=== PATIENT | female | born 1940 | race African-American/Black ===

== ENCOUNTER 2022-11-24 10:16 | Outpatient (AMB) | payer MEDICARE, SELFPAY ==
--- NOTE | 2022-11-24 10:37 | AM.OFFWIN_ITS ---
Intake Vital Signs 11/24/22 10:39 Height 5 ft 2 in Weight 180 lb BMI 32.9 BP 150/80 H Blood Pressure Location Lt brachial Position Sitting Pulse 76 Pulse Source Pulse Oximeter Temp 97.6 F Temp Source Temporal Artery Scan Pulse Oximetry (%) 99 Oxygen Delivery Method Room Air Intake Visit Reasons: EP Dizziness/?Vertigo Intake Note: pt is here for c/o dizziness and vertigo Patient Tobacco Use Status: Never used Tobacco Allergies No Known Allergies [No Known Allergies*] Allergy (Verified 11/24/22 10:38) Do you need a note to return to daycare/school/sports/work: Yes HPI EP Dizziness/?Vertigo HPI Details 82-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 She reports she had an episode of vertigo that started Thursday morning when getting up to go to the bathroom. She reports dizziness is worse with rapid movements or changes in position. Reports she has had vertigo in the past and this feels exactly like it. She denies weakness, changes in speech, fevers, chills, headache, aphasia, visual changes, nausea, vomiting, abdominal pain, chest pain, shortness of breath. she reports previously prescribed medications back in August when she had a similar episode worked very well. [facility] Social History Patient Tobacco Use Status: Never used Tobacco Review of Systems Const All systems reviewed & are unremarkable except as noted in HPI and below Physical Exam Vital Signs: Last Vital Signs Temp 97.6 F 11/24/22 10:39 Pulse 76 11/24/22 10:39 BP 150/80 H 11/24/22 10:39 Pulse Ox 99 11/24/22 10:39 Oxygen Delivery Method Room Air 11/24/22 10:39 BMI result Body Mass Index 32.9 Const General: cooperative, healthy appearing, comfortable and no acute distress Orientation/consciousness: patient oriented x3 HEENT Head: Yes normal to inspection and Yes normocephalic Ears: hearing grossly normal bilaterally, external ears normal and TM's normal bilaterally General nose exam: Normal external nose present and Normal nasal mucous membranes and turbinates present Face and sinus: Yes normal facial exam and Yes sinuses nontender Mouth: Normal oral and palatal mucosa present and moist mucous membranes Eyes General: appearance normal, both eyes and all related structures Neck Neck: Yes no lymphadenopathy Resp Effort & Inspection: normal respiratory effort and able to speak in complete sentences Auscultation: clear to auscultation bilaterally Cardio Jugular venous distension: no JVD Palpation: normal PMI Rate: regular rate Rhythm: regular rhythm Skin General skin exam: no rashes or lesions noted Neuro General: patient oriented x3, gait normal, tone normal, no focal motor deficits and CN's II-XI intact bilaterally Extrem General: Yes capillary refill normal and Yes no clubbing, cyanosis or edema Psych Appearance: grossly normal Mental Status: mental status grossly normal Speech and movement: Normal speech and movement present Assessment & Plan Assessment & Plan (1) Vertigo: Code(s): R42 - Dizziness and giddiness Plan: Likely recurrence of vertigo. Physical examination benign. Neuro nonfocal. NIH stroke scale 0. I will refill her meclizine and fluticasone nasal spray as allergies may be a contributing factor to this, and these medications helped her vertigo eposide several months ago. I advised her to follow-up with her PCP, given recurrent episode. Patient and healthcare worker present at visit agree to plan. (2) Allergies: Code(s): T78.40XA - Allergy, unspecified, initial encounter Qualifiers: Encounter type: sequela Qualified Code(s): T78.40XS - Allergy, uns pecified, sequela Medications: Refilled fluticasone propionate 50 mcg/actuation (Flonase Allergy Relief) administer into each nostril 1 spray intranasal DAILY 16 grams 0RF meclizine 25 mg PO BID PRN 30 tabs 0RF dizziness Coding Level of Care Code Est Pt Level 3 (36327) Diagnoses Vertigo R42 Allergy, sequela T78.40XS Encounter type: sequela
[2022-11-24 10:39] VITALS: BP 150/80; PULSE 76; TEMP 36.4; O2SAT 99; BMI 32.9
== END 2022-11-24 11:20 | disposition home or self-care (01) ==
PROVIDERS: PCP Nurse Practitioner Family; Visit Provider Nurse Practitioner Family
DX: R42 Dizziness and giddiness (principal); T78.40XS Allergy, unspecified, sequela
CPT/HCPCS: 99213

== ENCOUNTER 2024-08-10 10:22 | Outpatient (AMB) | payer MEDICARE, SELFPAY ==
--- NOTE | 2024-08-10 10:56 | MHC.OFFWIV ---
Intake Vital Signs 08/10/24 10:59 Height 5 ft 2 in Weight 182 lb 6 oz BMI 33.4 BP 144/80 H Blood Pressure Location Lt brachial Position Sitting Pulse 75 Pulse Source Pulse Oximeter Temp 97.9 F Temp Source Oral Pulse Oximetry (%) 99 Oxygen Delivery Method Room Air Intake Visit Reasons: EP pain on RT side of neck & shoulders Intake Note: EP c/o pain on Rt side of neck and shoulder since thursday Patient Tobacco Use Status: Never used Tobacco Manager Membership Required: No Is last menstrual period known: No Post menopausal: No Patient : No Allergies No Known Allergies [No Known Allergies*] Allergy (Verified 08/10/24 10:57) Do you need a note to return to daycare/school/sports/work: No HPI HPI Comments History of Present Illness Details History of Present Illness - The patient is an 83-year-old female presenting with right sided neck and shoulder pain. - Symptoms began 3 days ago, with pain radiating from the neck to the shoulder on the right side. - She has a past history of left sided bursitis with previous cortisone injections in the shoulder. - The patient attempted relief through topical applications and massaging. - The pain was aggravated by reaching for an item in a cabinet, suggesting a possible muscle strain. - She reports severe pain affecting her sleep, as she has not slept for four days. - No significant back pain or recent heavy lifting was reported. - The patient abstains from NSAIDs due to previous medical advice following an ileoscopy. Physical Exam General: Cooperative, healthy appearing, comfortable, no acute distress and well developed Orientation: Patient oriented x3 Limitations: No limitations Head: Normal to inspection Ears: Hearing grossly normal bilaterally Nose: Normal External nose present Face and sinus: Normal facial exam Eyes: Appearance normal, both eyes and all related structures Neck: Normal visual inspection and Yes full ROM, muscle spasm noted on the right side, into trapezius Respiratory: Normal respiratory effort and able to speak in complete sentences. Skin: No rashes or lesions noted Neuro: Patient oriented x3 Back/spine: no TTP cervical, throacic or lumbar spine Extremities: Normal to inspection [facility] Social History Patient Tobacco Use Status: Never used Tobacco Patient : No Review of Systems Const All systems reviewed & are unremarkable except as noted in HPI and below Physical Exam Vital Signs: Last Vital Signs Temp 97.9 F 08/10/24 10:59 Pulse 75 08/10/24 10:59 BP 144/80 H 08/10/24 10:59 Pulse Ox 99 08/10/24 10:59 Oxygen Delivery Method Room Air 08/10/24 10:59 BMI result Body Mass Index 33.4 Assessment & Plan Assessment & Plan (1) Cervicalgia: Code(s): M54.2 - Cervicalgia Plan: The patient is diagnosed with a muscle spasm and is prescribed cyclobenzaprine 5 mg, with the option to take two tablets if necessary. Heat application is recommended for muscle relaxation. Due to previous medical advice against NSAIDs, these are not prescribed, and acetaminophen is deemed inadequate. Should symptoms persist, physical therapy may be considered, pt should follow up with her PCP. The prescription has been electronically sent to her pharmacy, and she is advised to be cautious when moving at night to avoid falls. Patient was informed and verbally consented to the use of an ambient scribe for clinic note documentation during this visit. Medications: New cyclobenzaprine 5 mg PO Q8H PRN 20 tabs 0RF Muscle Spasm Coding Level of Care Code New Pt Level 3 (50160) Diagnoses Cervicalgia M54.2
[2024-08-10 10:59] VITALS: BP 144/80; PULSE 75; TEMP 36.6; O2SAT 99; BMI 33.4
--- OUTSIDE RECORDS SUMMARY | 2024-08-10 11:20 | XMS_ITS | Clinical Summary ---
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 Phone Unavailable Primary Care Provider Unavailabl e Social History Tobacco Use Types Packs/Day Years Used Date Smoking Tobacco: Never Assessed Comments Unknown Sex and Gender Information Value Date Recorded Sex Assigned at Not on file Legal Sex Female 2:58 PM EST Gender Identity Not on file Sexual Orientation Not on file Plan of Treatment Health Maintenance Due Date Last Done Comments DTaP,Tdap,and Td Vaccines (1 - Tdap) 1959 Pneumococcal Vaccine: 50+ Ye ars (1 of 1 - PCV) 09/11/1991 Zoster Vaccines (1 of 2) 09/11/1991 RSV Immunization Adult Patie nts (1 - 1-dose 75+ series) 2016 Depression Screening 02/12/2022 Falls Risk Assessment 02/12/2022 Osteoporosis Screening (Bone Density Screening) 02/12/2022 Social Influencers of Health Screening 02/12/2022 COVID-19 Vaccine ( - 2023-2 5 season) 2023 Influenza Vaccine (Season Ended) 2024 HIB Vaccines Aged Out No longer eligi ble based on patient's age to complete this topic HPV Vaccines Aged Out No longer eligi ble based on patient's age to complete this topic Hepatitis A Vaccines Aged Out No long er eligible based on patient's age to complete this topic Hepatitis B Vaccines Aged Out No long er eligible based on patient's age to complete this topic IPV Vaccines Aged Out No longer eligi ble based on patient's age to complete this topic MMR Vaccines Aged Out No longer eligi ble based on patient's age to complete this topic Meningococcal ACWY Vaccine Aged Out N o longer eligible based on patient's age to complete this topic Meningococcal B Vaccine Aged Out No l onger eligible based on patient's age to complete this topic RSV Immunization Patients Un radha 20 months Aged Out No longer eligible b ased on patient's age to complete this topic Varicella Vaccines Aged Out No longer eligible based on patient's age to complete this topic Advance Directives Documents on File Type Date Recorded Patient Taker Off Drying Kiln Expl anation Health Care Decision (hx) 02/07/2014 AD [place]OWDEN DIRECTIVE Health Care Decision (hx) 02/07/2014 AD SNOWDEN DIRECTIVE Health Care Decision (hx) 02/07/2014 AD SNOWDEN DIRECTIVE Health Care Decision (hx) 02/07/2014 AD SNOWDEN DIRECTIVE Health Care Decision (hx) 10/04/2013 AD SNOWDEN DIRECTIVE Health Care Decision (hx) 10/04/2013 AD SNOWDEN DIRECTIVE Health Care Decision (hx) 10/04/2013 AD SNOWDEN DIRECTIVE Health Care Decision (hx) 10/04/2013 AD SNOWDEN DIRECTIVE
== END 2024-08-10 11:51 | disposition home or self-care (01) ==
PROVIDERS: Visit Provider Physician Assistant
DX: M54.2 Cervicalgia (principal)

== ENCOUNTER → 2024-08-10 10:22 | Outpatient (BNVA) | payer OTHER, SELFPAY | PROVIDERS: Visit Provider Physician Assistant | DX: M54.2 Cervicalgia (principal) | CPT/HCPCS: 99202 ==

== ENCOUNTER 2024-10-31 08:57 | Emergency (ER) | payer OTHER, SELFPAY ==
--- NOTE | ~2024-10-31 | XR_ITS ---
EXAMINATION: XR LUMBOSACRAL SPINE CLINICAL INFORMATION: atraumatic bilteral lower back pain COMPARISON: None available. TECHNIQUE: Three views of the lumbosacral spine. FINDINGS: There is a trace levoconvex scoliosis. There is a normal lordosis. There is pseudoarticulation of the right transverse process of L5 with the right sacral wing. There is no fracture, compression deformity, or suspicious bone lesion. There is a 3 mm degenerative retrolisthesis of L2 on L3. There is a 6 mm degenerative anterolisthesis of L4 on L5. Severe disc degeneration present at L1-2, L2-3, with lesser changes at L4-5 and L5-S1. Multilevel facet degeneration and hypertrophy spanning L2-S1. Numerous surgical clips project over the pelvis and lower abdomen. There are diffuse vascular calcifications. XR/XR lumbar spine 2-3V IMPRESSION: Advanced lumbar spondylosis. No acute finding by radiography. Electronically signed by: William Patel MD 10/31/2024 10:30 AM EDT
[2024-10-31 09:24] VITALS: BP 178/101; PULSE 75; RESP 16; TEMP 37; O2SAT 97; BMI 32.2
--- NOTE | 2024-10-31 09:24 | ED.GENADULT ---
HPI - General Adult General Chief complaint: Back Pain/Injury Stated complaint: lower back pain Time Seen by Provider: 10/31/24 11:31 Related Data Home Medications ?Medication ?Instructions ?Recorded ?Confirmed amlodipine 5 mg tablet 0 mg PO 09/04/22 atorvastatin 80 mg tablet 80 mg PO DAILY 09/04/22 ketotifen fumarate 0.025 % (0.035 0 drp ophthalmic (eye) 09/04/22 %) eye drops levothyroxine 50 mcg tablet 50 mcg PO DAILY 09/04/22 metoprolol succinate 25 mg 25 mg PO DAILY 09/04/22 tablet,extended release 24 hr sodium bicarbonate 650 mg tablet 650 mg PO TID 09/04/22 trazodone 50 mg tablet 0 mg PO 09/04/22 Previous Rx's ?Medication ?Instructions ?Recorded fluticasone propionate 50 1 spray intranasal DAILY #16 grams 11/24/22 mcg/actuation nasal spray,suspension (Flonase Allergy Relief) meclizine 25 mg tablet 25 mg PO BID PRN dizziness #30 tabs 11/24/22 cyclobenzaprine 5 mg tablet 5 mg PO Q8H PRN Muscle Spasm #20 08/10/24 tabs lidocaine 4 % topical patch 1 patch topical DAILY PRN pain #15 10/31/24 ea nitrofurantoin 100 mg PO Q12H 7 days #14 caps 10/31/24 monohydrate/macrocrystals 100 mg capsule (Macrobid) oxycodone 5 mg tablet 5 mg PO Q8H PRN pain #9 tabs 10/31/24 prednisone 20 mg tablet 40 mg (2 x 20 mg) PO DAILY 5 days 10/31/24 #10 tabs Allergies Allergy/AdvReac Type Severity Reaction Status Date / Time No Known Allergies (No Known Allergy Verified 10/31/24 09:27 Allergies*) [facility] Social History Social History Patient Tobacco Use Status: Never used Tobacco Advance Directives: No Advance Directives Information Provided: Yes Physical Exam ED Vital Signs: BMI result Body Mass Index 32.2 Course Course Course Narrative: This is a Rapid Medical Examination (RME) performed by Mouna Torres PA-C in triage. Full HPI, ROS, assessment and treatment plan per primary provider in the Main ED. Hx: 84 yo F hx of coronary artery disease, hypertension, hyperlipidemia here for eval of neck pain and acute on chronic back pain x1 week. pain extends from b/l lower back into her buttocks. 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 no new injury/trauma/falls. no hx spinal surgeries. no numbness/tingling/weakness of the extremities. no bowel/ bladder incontinence, dysuria. trying tylenol at home without relief. states she is unable to take motrin. PE/vitals: no midline spinous tenderness or step off. unable to perform straight leg test in triage. no cvat. Plan: labs, UA, lumbar xr Reevaluation(s) Reevaluation #1: Patient left the emergency department before myself or any of the other clinicians could review or explain physical exam findings, test results, need or lack there of for additional testing, treatment options, or a treatment plan. Medications Administered Discontinued Medications Generic Name Dose Route Start Last Admin Trade Name Freq PRN Reason Stop Dose Admin Ketorolac Tromethamine 30 mg 10/31/24 11:31 10/31/24 11:41 Ketorolac Tromethamine 30 Mg/Ml Vial IM 10/31/24 11:32 30 mg ONCE ONE Administration Prednisone 40 mg 10/31/24 11:31 10/31/24 11:42 Prednisone 20 Mg Tablet PO 10/31/24 11:32 40 mg ONCE ONE Administration Medical Decision Making Lab Data 10/31/24 09:39 10/31/24 09:39 Labs: Lab Results 10/31/24 Range/Units 09:39 WBC 7.1 (4.8-10.8) X10*3/uL RBC 4.40 (4.20-5.50) X10*6/uL Hgb 13.3 (12.0-16.0) g/dl Hct 41.0 (37.0-47.0) % MCV 93.2 (80.0-98.0) fL MCH 30.2 (27.0-33.0) pg MCHC 32.4 (31.0-35.0) g/dl RDW 16.6 H (11.0-16.0) % Plt Count 162 (160-400) X10*3/uL MPV 11.7 (9.4-12.3) fL Immature Gran % (Auto) 0.1 (0.0-0.4) % Neut % (Auto) 61.4 (45-73) % Lymph % (Auto) 26.9 (20-40) % [place] % (Auto) 8.3 (2-11) % Eos % (Auto) 2.7 (0-4) % Baso % (Auto) 0.6 (0-2) % Lymph # (Auto) 1.9 (1.2-4.9) X10*3/uL [place] # (Auto) 0.6 (0.1-1.2) X10*3/uL Eos # (Auto) 0.2 (0.0-0.4) X10*3/uL Baso # (Auto) 0.0 (0.0-0.2) X10*3/uL Abs Immat Gran (auto) 0.01 (0.00-0.03) X10*3/uL Absolute Neuts (auto) 4.4 (2.0-8.3) x10*3/uL Absolute Nucleated RBC 0.000 (0.0-0.012) X10*3/uL Nucleated RBC % (auto) 0.0 (0.0-0.2) /100WBC Sodium 140 (135-145) mmol/L Potassium 3.8 (3.3-5.1) mmol/L Chloride 117 H (96-108) mmol/L Carbon Dioxide 17 L (22-29) mmol/L Anion Gap 10 L (12-20) BUN 21 H (9-16) mg/dL Creatinine 1.31 (0.5-1.4) mg/dL Estim Creat Clear Calc 31.8 Estimated GFR 39 Random Glucose 127 H (60-115) mg/dL Calcium 9.4 (8.4-10.2) mg/dL Magnesium 2.1 (1.6-2.6) mg/dL Total Bilirubin 0.5 (0.0-1.0) mg/dL AST 37 H (5-31) U/L ALT 30 (0-31) U/L Alkaline Phosphatase 77 (39-117) U/L Total Protein 7.3 (6.5-8.0) g/dL Albumin 3.6 (3.5-5.0) g/dL Urine Color Yellow Urine Appearance Clear Urine pH 6.0 (5.0-9.0) Ur Specific [place] 1.020 (1.005-1.025) Urine Protein 30 (1+) H (Neg-Trace) mg/dL Urine Glucose (UA) Negative (Negative) mg/dL Urine Ketones Negative (Negative) mg/dL Urine Blood Negative (Negative) Urine Nitrite Negative (Negative) Ur Leukocyte Esterase Large (3+) H (Negative) Urine RBC 0-2 (0-2) /HPF Urine WBC 21-50 H (0-5) /HPF Ur Squamous Epith Cells 3-5 (0-2) /HPF Urine Bacteria 1+ (None Seen) Hyaline Casts 3-5 (0-2) /LPF Discharge Plan Discharge Clinical Impression: Lumbar radiculopathy, Acute UTI, Hypertension Patient Disposition: Home, Self-Care Instructions: Lumbar Radiculopathy (ED), Urinary Tract Infection in Older Adults (ED) Additional Instructions: You will need follow up with PCP, and spinal surgeon. Recommend drinking plenty of water for slight dehydration that was shown in your labs. Return to the ED immeidatley for weakness, cramping of extremities, worsening back pain, seizures, paralysis of extremities, urinary/bowel incontinence, fever, chills, chest pain, shorness of breath, headache, nausea, vomitting, abdominal pain, hematuria, facial droop, slurred speech, or any other concerning symptoms. Take tyelnol for pain releif with meds. Due to you taking aspirin, I can not prescribe any NSAID. Ordering Physician: Kathy Torres Date of Service: 10/31/24 Procedure(s): XR lumbar spine 2-3V Accession Number(s): [id number] cc: Physician,Unknown ; Kathy Torres~ EXAMINATION: XR LUMBOSACRAL SPINE CLINICAL INFORMATION: atraumatic bilteral lower back pain COMPARISON: None available. TECHNIQUE: Three views of the lumbosacral spine. FINDINGS: There is a trace levoconvex scoliosis. There is a normal lordosis. There is pseudoarticulation of the right transverse process of L5 with the right sacral wing. There is no fracture, compression deformity, or suspicious bone lesion. There is a 3 mm degenerative retrolisthesis of L2 on L3. There is a 6 mm degenerative anterolisthesis of L4 on L5. Severe disc degeneration present at L1-2, L2-3, with lesser changes at L4-5 and L5-S1. Multilevel facet degeneration and hypertrophy spanning L2-S1. Numerous surgical clips project over the pelvis and lower abdomen. There are diffuse vascular calcifications. XR/XR lumbar spine 2-3V IMPRESSION: Advanced lumbar spondylosis. No acute finding by radiography. Electronically signed by: William Patel MD 10/31/2024 10:30 AM EDT RP Prescriptions: New prednisone 20 mg tablet 40 mg PO DAILY 5 Days Qty: 10 0RF oxycodone 5 mg tablet 5 mg PO Q8H PRN (Reason: pain) Qty: 9 0RF Rx Instructions: side effect is drowsiness. Do not take while driving or at work nitrofurantoin monohyd/m-cryst [Macrobid] 100 mg capsule 100 mg PO Q12H 7 Days Qty: 14 0RF Rx Instructions: must administer with a meal/food lidocaine 4 % adhesive patch,medicated 1 patch topical DAILY PRN (Reason: pain) Qty: 15 0RF No Action levothyroxine 50 mcg tablet 50 mcg PO DAILY metoprolol succinate 25 mg tablet extended release 24 hr 25 mg PO DAILY amlodipine 5 mg tablet 0 mg PO atorvastatin 80 mg tablet 80 mg PO DAILY sodium bicarbonate 650 mg tablet 650 mg PO TID ketotifen fumarate 0.025 % (0.035 %) drops 0 drp ophthalmic (eye) trazodone 50 mg tablet 0 mg PO fluticasone propionate [Flonase Allergy Relief] 50 mcg/actuation spray,suspension 1 spray intranasal DAILY Qty: 16 0RF Rx Instructions: administer into each nostril meclizine 25 mg tablet 25 mg PO BID PRN (Reason: dizziness) Qty: 30 0RF cyclobenzaprine 5 mg tablet 5 mg PO Q8H PRN (Reason: Muscle Spasm) Qty: 20 0RF Referrals: Hollis Gonzalez MD, PhD [Physician, Neuro Spine] - 2 days Referral Note: Severe Lumbar spondylosisi Clinical Impression: Lumbar radiculopathy Interventions: ED Discharge Assessment Last Done: 10/31/24 11:49 Discharge Date/Time: 10/31/24 13:00 Print Language: Gambian
[2024-10-31 09:45] LABS: MANUAL DIFF FLAG NO
[2024-10-31 09:46] LABS: Hematocrit 41.0 % (37.0-47.0); Hemoglobin 13.3 g/dl (12.0-16.0); Imm Gran Abs Auto 0.01 X10*3/uL (0.00-0.03); Imm Gran Pct Auto 0.1 % (0.0-0.4); Lymphocytes Absolute Auto 1.9 X10*3/uL (1.2-4.9); Mean Corpuscular HGB Conc 32.4 g/dl (31.0-35.0); Mean Corpuscular Hemoglobin 30.2 pg (27.0-33.0); Mean Corpuscular Volume 93.2 fL (80.0-98.0); NRBC Abs Auto 0.000 X10*3/uL (0.0-0.012); NRBC Pct Auto 0.0 /100WBC (0.0-0.2); Platelet Count 162 X10*3/uL (160-400); Red Blood Count 4.40 X10*6/uL (4.20-5.50); White Blood Count 7.1 X10*3/uL (4.8-10.8)
[2024-10-31 09:47] LABS: Appearance Urine Clear; Glucose Urine UA Negative (Negative); PH 6.0 (5.0-9.0); Specific Gravity - Urine 1.020 (1.005-1.025); UMIC TRIGGER UACC YES
[2024-10-31 09:52] LABS: UACC Culture Trigger YES
[2024-10-31 10:03] LABS: Alanine Aminotransferase 30 U/L (0-31); Albumin Level 3.6 g/dL (3.5-5.0); Alkaline Phosphatase 77 U/L (39-117); Anion Gap 10 (12-20); Aspartate Amino Transferase 37 U/L (5-31); Blood Urea Nitrogen 21 mg/dL (9-16); Calcium 9.4 mg/dL (8.4-10.2); Carbon Dioxide 17 mmol/L (22-29); Chloride 117 mmol/L (96-108); Creatinine Clr Calc Pharmacy 31.8; Estimated Glomerular Filt Rate 39; Magnesium 2.1 mg/dL (1.6-2.6); Potassium 3.8 mmol/L (3.3-5.1); Sodium 140 mmol/L (135-145); Total Protein 7.3 g/dL (6.5-8.0)
--- NOTE | 2024-10-31 11:27 | PC.NURSE ---
patient states she has back pain xyears, states it has been getting worse.
[2024-10-31 11:29] VITALS: BP 180/80; PULSE 67; RESP 16; TEMP 36.6; O2SAT 97
--- NOTE | 2024-10-31 11:33 | ED.GENADULT ---
HPI - General Adult General Chief complaint: Back Pain/Injury Stated complaint: lower back pain Time Seen by Provider: 10/31/24 11:31 Source: patient Mode of arrival: ambulatory Limitations: no limitations History of Present Illness ED Provider: Benito Alfaro HPI narrative: 84 yold female with pmh of lumbar radiculopathy and HTN presents to the ED for lower back pain radiating down legs without any trauma. patient states no fever, chills, nausea, vomitting, dysuria, hemautira, urinary, bowel incontinence, IV drug use, or genital nubmness. Back pain worse on movmement Related Data Home Medications ?Medication ?Instructions ?Recorded ?Confirmed amlodipine 5 mg tablet 0 mg PO 09/04/22 atorvastatin 80 mg tablet 80 mg PO DAILY 09/04/22 ketotifen fumarate 0.025 % (0.035 0 drp ophthalmic (eye) 09/04/22 %) eye drops levothyroxine 50 mcg tablet 50 mcg PO DAILY 09/04/22 metoprolol succinate 25 mg 25 mg PO DAILY 09/04/22 tablet,extended release 24 hr sodium bicarbonate 650 mg tablet 650 mg PO TID 09/04/22 trazodone 50 mg tablet 0 mg PO 09/04/22 Previous Rx's ?Medication ?Instructions ?Recorded fluticasone propionate 50 1 spray intranasal DAILY #16 grams 11/24/22 mcg/actuation nasal spray,suspension (Flonase Allergy Relief) meclizine 25 mg tablet 25 mg PO BID PRN dizziness #30 tabs 11/24/22 cyclobenzaprine 5 mg tablet 5 mg PO Q8H PRN Muscle Spasm #20 08/10/24 tabs lidocaine 4 % topical patch 1 patch topical DAILY PRN pain #15 10/31/24 ea nitrofurantoin 100 mg PO Q12H 7 days #14 caps 10/31/24 monohydrate/macrocrystals 100 mg capsule (Macrobid) oxycodone 5 mg tablet 5 mg PO Q8H PRN pain #9 tabs 10/31/24 prednisone 20 mg tablet 40 mg (2 x 20 mg) PO DAILY 5 days 10/31/24 #10 tabs Allergies Allergy/AdvReac Type Severity Reaction Status Date / Time No Known Allergies (No Known Allergy Verified 10/31/24 09:27 Allergies*) Review of Systems Review of Systems: back pain Yes all other systems are reviewed and are negative [facility] Social History Social History Patient Tobacco Use Status: Never used Tobacco Advance Directives: No Advance Directives Information Provided: Yes Physical Exam ED Vital Signs: Vital Signs - 24 hr 10/31/24 09:24 10/31/24 11:29 Temperature 98.6 F 98 F Pulse Rate 75 67 Respiratory Rate 16 16 Blood Pressure 178/101 H 180/80 H Pulse Oximetry 97 97 Oxygen Delivery Method Room Air Room Air BMI result Body Mass Index 32.2 Const General: cooperative, healthy appearing, comfortable, no acute distress, well developed, alert, awake and Physically active Orientation/consciousness: patient oriented x3 HENMT Head: Yes normal to inspection, Yes No palpable skull fracture present, Yes normocephalic, Yes atraumatic and No abrasion Eyes General: appearance normal, both eyes and all related structures Neck Neck: Yes normal visual inspection, Yes full ROM, Yes no lymphadenopathy, Yes no meningeal signs, Yes trachea midline, Yes supple, No anterior neck swelling and No tender Chest Chest palpation & inspection: normal inspection of the chest and normal palpation of entire chest wall Resp Effort & Inspection: normal respiratory effort and able to speak in complete sentences Auscultation: clear to auscultation bilaterally Cardio Jugular venous distension: no JVD Heart sounds: S1 normal heart sound present and S2 normal heart sound present GI Inspection: Yes normal to inspection Palpation (GI): Soft to palpation, not firm, nontender, no guarding and not rigid General: Yes no CVA tenderness Back/Spine/Pelvis Back: no CVA tenderness and back tenderness (lumbar spine tenderness) Skin General skin exam: no rashes or lesions noted and elasticity normal Neuro General: patient oriented x3, gait normal, tone normal, moves all extremities, Normal light touch and pain sensation, no meningeal signs, no focal motor deficits and CN's II-XI intact bilaterally Extrem General: Yes normal to inspection, Yes full ROM and Yes capillary refill normal Psych Appearance: grossly normal, well kempt and not disheveled Medications Administered Discontinued Medications Generic Name Dose Route Start Last Admin Trade Name Freq PRN Reason Stop Dose Admin Ketorolac Tromethamine 30 mg 10/31/24 11:31 10/31/24 11:41 Ketorolac Tromethamine 30 Mg/Ml Vial IM 10/31/24 11:32 30 mg ONCE ONE Administration Prednisone 40 mg 10/31/24 11:31 10/31/24 11:42 Prednisone 20 Mg Tablet PO 10/31/24 11:32 40 mg ONCE ONE Administration Medical Decision Making Medical Decision Making [facility] Narrative: 84 yold female with pmh of HTN and lumbar radiculopathy presents to the ED for low back pain that is worse on movement. Patient denies any flank pain, fever, recent trauma, IV drug use, or urinary/bowel incontinence. labs shows slight dehydration. Patient refuses IV fluids and preferes to go home and drink oral fluids. Pain meds ordered. not suspecting osteomylititis, caudina equina syndrome, epidural abscess, kidney stones, pylenopdhritis, aortic dissection, AAA or any other life threatening etioligeis. UA shows possible UTI. dischargeed with antibiotics. patient explained worrisome signs and informed to return to the ED. Patient hypertensive due to pain and did not take her meds this morning.. Differential Diagnosis Differential Diagnoses: The differential diagnosis associated with the presentation includes (UTI, lumbar radiculpathy, kidnety stones) Admission/Observation Consideration of admission/observation: Escalation of care including admission/observation considered Lab Data [facility] Lab Attestation statement: I reviewed the patient's lab results. 10/31/24 09:39 10/31/24 09:39 Labs: Lab Results 10/31/24 Range/Units 09:39 WBC 7.1 (4.8-10.8) X10*3/uL RBC 4.40 (4.20-5.50) X10*6/uL Hgb 13.3 (12.0-16.0) g/dl Hct 41.0 (37.0-47.0) % MCV 93.2 (80.0-98.0) fL MCH 30.2 (27.0-33.0) pg MCHC 32.4 (31.0-35.0) g/dl RDW 16.6 H (11.0-16.0) % Plt Count 162 (160-400) X10*3/uL MPV 11.7 (9.4-12.3) fL Immature Gran % (Auto) 0.1 (0.0-0.4) % Neut % (Auto) 61.4 (45-73) % Lymph % (Auto) 26.9 (20-40) % [place] % (Auto) 8.3 (2-11) % Eos % (Auto) 2.7 (0-4) % Baso % (Auto) 0.6 (0-2) % Lymph # (Auto) 1.9 (1.2-4.9) X10*3/uL [place] # (Auto) 0.6 (0.1-1.2) X10*3/uL Eos # (Auto) 0.2 (0.0-0.4) X10*3/uL Baso # (Auto) 0.0 (0.0-0.2) X10*3/uL Abs Immat Gran (auto) 0.01 (0.00-0.03) X10*3/uL Absolute Neuts (auto) 4.4 (2.0-8.3) x10*3/uL Absolute Nucleated RBC 0.000 (0.0-0.012) X10*3/uL Nucleated RBC % (auto) 0.0 (0.0-0.2) /100WBC Sodium 140 (135-145) mmol/L Potassium 3.8 (3.3-5.1) mmol/L Chloride 117 H (96-108) mmol/L Carbon Dioxide 17 L (22-29) mmol/L Anion Gap 10 L (12-20) BUN 21 H (9-16) mg/dL Creatinine 1.31 (0.5-1.4) mg/dL Estim Creat Clear Calc 31.8 Estimated GFR 39 Random Glucose 127 H (60-115) mg/dL Calcium 9.4 (8.4-10.2) mg/dL Magnesium 2.1 (1.6-2.6) mg/dL Total Bilirubin 0.5 (0.0-1.0) mg/dL AST 37 H (5-31) U/L ALT 30 (0-31) U/L Alkaline Phosphatase 77 (39-117) U/L Total Protein 7.3 (6.5-8.0) g/dL Albumin 3.6 (3.5-5.0) g/dL Urine Color Yellow Urine Appearance Clear Urine pH 6.0 (5.0-9.0) Ur Specific [place] 1.020 (1.005-1.025) Urine Protein 30 (1+) H (Neg-Trace) mg/dL Urine Glucose (UA) Negative (Negative) mg/dL Urine Ketones Negative (Negative) mg/dL Urine Blood Negative (Negative) Urine Nitrite Negative (Negative) Ur Leukocyte Esterase Large (3+) H (Negative) Urine RBC 0-2 (0-2) /HPF Urine WBC 21-50 H (0-5) /HPF Ur Squamous Epith Cells 3-5 (0-2) /HPF Urine Bacteria 1+ (None Seen) Hyaline Casts 3-5 (0-2) /LPF Independent Interpretation I performed an independent interpretation of an: Plain X-Ray Radiology Impression Discussion of test interpretation with radiology: I have reviewed the radiologist's reading. Independent Historian Clinical information obtained from an independent historian. History obtained from or confirmed by: Other (patient) Prescription Management I considered prescription management with: Antibiotic and Other (prednisone) Discharge Plan Discharge Clinical Impression: Lumbar radiculopathy, Acute UTI, Hypertension Patient Disposition: Home, Self-Care Instructions: Lumbar Radiculopathy (ED), Urinary Tract Infection in Older Adults (ED) Additional Instructions: You will need follow up with PCP, and spinal surgeon. Recommend drinking plenty of water for slight dehydration that was shown in your labs. Return to the ED immeidatley for weakness, cramping of extremities, worsening back pain, seizures, paralysis of extremities, urinary/bowel incontinence, fever, chills, chest pain, shorness of breath, headache, nausea, vomitting, abdominal pain, hematuria, facial droop, slurred speech, or any other concerning symptoms. Take tyelnol for pain releif with meds. Due to you taking aspirin, I can not prescribe any NSAID. Ordering Physician: Kathy Torres Date of Service: 10/31/24 Procedure(s): XR lumbar spine 2-3V Accession Number(s): [id number] cc: Physician,Unknown ; Kathy Torres~ EXAMINATION: XR LUMBOSACRAL SPINE CLINICAL INFORMATION: atraumatic bilteral lower back pain COMPARISON: None available. TECHNIQUE: Three views of the lumbosacral spine. FINDINGS: There is a trace levoconvex scoliosis. There is a normal lordosis. There is pseudoarticulation of the right transverse process of L5 with the right sacral wing. There is no fracture, compression deformity, or suspicious bone lesion. There is a 3 mm degenerative retrolisthesis of L2 on L3. There is a 6 mm degenerative anterolisthesis of L4 on L5. Severe disc degeneration present at L1-2, L2-3, with lesser changes at L4-5 and L5-S1. Multilevel facet degeneration and hypertrophy spanning L2-S1. Numerous surgical clips project over the pelvis and lower abdomen. There are diffuse vascular calcifications. XR/XR lumbar spine 2-3V IMPRESSION: Advanced lumbar spondylosis. No acute finding by radiography. Electronically signed by: William Patel MD 10/31/2024 10:30 AM EDT RP Prescriptions: New prednisone 20 mg tablet 40 mg PO DAILY 5 Days Qty: 10 0RF oxycodone 5 mg tablet 5 mg PO Q8H PRN (Reason: pain) Qty: 9 0RF Rx Instructions: side effect is drowsiness. Do not take while driving or at work nitrofurantoin monohyd/m-cryst [Macrobid] 100 mg capsule 100 mg PO Q12H 7 Days Qty: 14 0RF Rx Instructions: must administer with a meal/food lidocaine 4 % adhesive patch,medicated 1 patch topical DAILY PRN (Reason: pain) Qty: 15 0RF No Action levothyroxine 50 mcg tablet 50 mcg PO DAILY metoprolol succinate 25 mg tablet extended release 24 hr 25 mg PO DAILY amlodipine 5 mg tablet 0 mg PO atorvastatin 80 mg tablet 80 mg PO DAILY sodium bicarbonate 650 mg tablet 650 mg PO TID ketotifen fumarate 0.025 % (0.035 %) drops 0 drp ophthalmic (eye) trazodone 50 mg tablet 0 mg PO fluticasone propionate [Flonase Allergy Relief] 50 mcg/actuation spray,suspension 1 spray intranasal DAILY Qty: 16 0RF Rx Instructions: administer into each nostril meclizine 25 mg tablet 25 mg PO BID PRN (Reason: dizziness) Qty: 30 0RF cyclobenzaprine 5 mg tablet 5 mg PO Q8H PRN (Reason: Muscle Spasm) Qty: 20 0RF Referrals: Hollis Gonzalez MD, PhD [Physician, Neuro Spine] - 2 days Referral Note: Severe Lumbar spondylosisi Clinical Impression: Lumbar radiculopathy Interventions: ED Discharge Assessment Last Done: 10/31/24 11:49 Discharge Date/Time: 10/31/24 13:00 Print Language: Wallisian
[2024-10-31 11:49] VITALS: BP 180/80; PULSE 67; RESP 16; TEMP 36.6; O2SAT 97
--- OUTSIDE RECORDS SUMMARY | 2024-10-31 13:11 | XMS_ITS | Clinical Summary ---
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
--- OUTSIDE RECORDS SUMMARY | 2024-10-31 13:11 | XMS_ITS | Encounter Summary ---
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 Not on jim e 07/11/2022 Are you concerned about learning? Not on file 07/11/2022 No 07/11/2022 No 07/11/2022 Digital Access Answer Date Recorded No 08/11/2022 No 08/11/2022 Reliable internet access at home? Not on file 08/11/2022 Device with a working camera? 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 Not on file Not on file Not on file documented as of this encounter Plan of Treatment Upcoming Encounters Date Type Department Care Team (Late st Contact Info) Description 01/26/2025 11:00 AM EST Office Visit [facility] [address] [place] [address] [place] [address] Silvino Umaña, SECRETARIAL TEACHER [address] [place] [address] [email or web address] 10/24/2025 11:10 AM EDT Office Visit [facility] [address] [place] [address] [place] [address] Chandra Chaney DO [address] [place] [id number] documented as of this encounter Procedures Procedure Name Priority Date/Time Associated Diagnosis Comments TSH Routine 10/11/2024 10:33 AM EDT 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 FREE T4 Routine 10/11/2024 10:33 AM EDT 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 documented in this encounter Results * TSH (10/11/2024 10:33 AM EDT) Blood us Chandra Chaney DO LAB BLOOD ORDERABLES Final Resul t Performing Organization Address City/[facility]/ZIP Co de Phone Number [address] [address] * Free T4 (10/11/2024 10:33 AM EDT) Blood us Chandra Chaney DO LAB BLOOD ORDERABLES Final Resul t [address] [place] [address] documented in this encounter Visit Diagnoses Diagnosis 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 documented in this encounter Additional Health Concerns Assessment Noted Time PHQ-2 Depression Total Score: 0 07/12/19 22 11:22 AM EDT documented as of this encounter Care Teams Physical Therapy Instructor Relationship Specialty Start Date End Date Silvino Umaña CNP [address] [place] [address] [email or web address] PCP - General Family Medicine 05/20/23 Chandra Chaney DO [address] [place] [address] [email or web address] Endocrinology 11/07/22 Franklin MD [address] [facility] [address] [place] [address] [email or web address] Nephrology 11/07/22 documented as of this encounter Additional Source Comments The information contained in this document represents components of the legal health record. It is not the complete legal health record.[facility]
--- OUTSIDE RECORDS SUMMARY | 2024-10-31 13:12 | XMS_ITS | Clinical Summary ---
Author Organization [facility] Address [address] [facility] [address] [place] [address] Phone Care Team Providers Care Automation Analyst Name Role Phone Sivan Otoole NP Primary Care Provider Unavailabl e Allergies No known active allergies Medications levothyroxine (SYNTHROID, LEVOTHROID) 50 MCG tablet Take 50 mcg by mouth every morning 08/16/2021 Active cholecalciferol (VITAMIN D-3) 25 MCG (1000 UT) tablet Take 1,000 Units by mouth in the morning. 07/11/2021 Active atorvastatin (LIPITOR) 80 MG tablet Take 80 mg by mouth in the morning. 08/30/2021 Active aspirin (ST ISMA) 81 MG EC tablet Take 81 mg by mouth 08/30/2021 Active amLODIPine (NORVASC) 5 MG tablet Take 2.5 mg by mouth in the morning. 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 It appeared that she did have transient thyrotoxicosis due to Ryan's thyroiditis but the TSH is now elevated with low free T4 and she would benefit from small dose of levothyroxine administration. She does not appear to have cardiovascular disease so I will prescribe levothyroxine 50 mcg daily and repeat thyroid function studies in 3 months. The patient was informed to take levothyroxine fasting with water wait 45 minutes before eating and not to take any multivitamins, calcium, iron within 4 hours of levothyroxine administration. Nontoxic uninodular goiter 08/16/2021 Overview (10/30/2021): Last Assessment & Plan: Patient has a nontoxic uninodular goiter with a right mid lower pole nodule measuring 4.4 x 2.7 x 4.4 cm that she is known since 2018. Last ultrasound was done on 08/10/2019. Ultrasound-guided fine-needle aspiration done on 07/17/2021 was benign. I will request a repeat ultrasound for monitoring in 1 year x 07/17/2022. Thyroid stimulating hormone level below referenc e range 07/19/2021 Overview (10/30/2021): Last Assessment & Plan: The patient was found to have low TSH level. She does not have any symptoms of hyperthyroidism just occasional symptoms of tremors palpitations and heat intolerance. I will repeat thyroid function studies also check TBII and thyroglobulin antibodies. Nodular goiter 06/13/2021 Overview (10/30/2021): Last Assessment & Plan: At this point I know what the TSH level is. So it is possible that the patient may have a toxic uninodular goiter. But I want to state this. I think I need to do further work-up. I am going to do thyroid antibody work-up. If this is an explanation for her having suppressed TSH other than Ryan's thyroiditis such as Graves' disease did not want to do radioactive iodine uptake and scan but if the TBII is negative then I may have to do radioactive iodine uptake and scan in the future. As for the thyroid nodule was biopsied and found to be benign. Normally we would just repeat the ultrasound in a years time. Since she had her last ultrasound in 2019 I would just assume repeating the ultrasound 1 year after the biopsy which will be 07/17/2022. But at this point I do not know if that is necessary I first have to determine if this is a hot or cold nodule. If it is a hot nodule within it does not need to be biopsied again. History of human papilloma virus infection 06/07 Bicarbonate level - finding 01/04/2020 Sciatica 08/02/2019 History of total knee arthroplasty 11/05/2018 Allergic rhinitis 05/04/2017 Anxiety 05/04/2017 Depressive disorder 05/04/2017 Diastolic dysfunction 05/04/2017 Essential hypertension 05/04/2017 Hypoxia 05/04/2017 Personal history of pulmonary embolism 8 Mixed hyperlipidemia 05/04/2017 Ileostomy present 05/04/2017 Ulcerative colitis 05/04/2017 Thoracic aortic aneurysm without rupture 018 Seasonal allergy 05/04/2017 Encounters Date Type Department Care Team Description 08/15/2024 Orders Only [facility] [address] [place] [phone] Sunday Franklin MD from Last 3 Months Immunizations Immunization Administration Dates Next Due Influenza Split High Dose Pr eservative Free IM 12/16/2018,12/25/2017,12/11/2015,12/28 Influenza, Unspecified 12/11/2020,12/26/2019, Moderna SARS-COV-2 02/14/2021 Pneumococcal Conjugate 13-Valent 01/23/2015 Pneumococcal Polysaccharide 02/08/2019 Shingrix 03/11/2021,01/06/2021 Tdap 02/08/2019 Zoster 03/12/2016 Social History Tobacco Use Types Packs/Day Years Used Date Smoking Tobacco: Never Assessed Tobacco Cessation:Counseling Given: No Alcohol Use Standard Drinks/Week Comments Never 0 (1 standard drink = 0.6 oz pur e alcohol) Comments Unknown Sex and Gender Information Value Date Recorded Sex Assigned at Not on file Legal Sex Female 8:47 AM EDT Gender Identity Not on file Sexual Orientation Not on file Last Filed Vital Signs Vital Sign Reading Time Taken Comments Blood Pressure 147/68 10/01/2023 12:56 PM EDT Pulse 74 10/01/2023 12:56 PM EDT Temperature - - Respiratory Rate - - Oxygen Saturation 98% 10/01/2023 12:56 PM EDT Inhaled Oxygen Concentration - - Weight 82.4 kg (181 lb 9.6 oz) 10/01/2023 12:56 PM EDT Height - - Body Mass Index - - Plan of Treatment Upcoming Encounters Date Type Department Care Team (Late st Contact Info) Description 01/26/2025 3:30 PM EST Office Visit [facility] [address] [phone] Sunday Franklin MD [address] [phone] Health Maintenance Due Date Last Done Comments Influenza Vaccine (#1) 2024 3, 12/11/2021, 12/11/2020, Additional history exists Pneumococcal Vaccine: 50+ Years Completed 02/08/2019, 01/23/2015 Hepatitis B Vaccine Aged Out No longe r eligible based on patient's age to complete this topic Procedures Procedure Name Priority Date/Time Associated Diagnosis Comments SPECIMEN STATUS REPORT Routine 08/15/2024 10:44 AM EDT PTH, INTACT Routine 08/15/2024 10:44 AM EDT MAGNESIUM Routine 08/15/2024 10:44 AM EDT VITAMIN D 25 HYDROXY Routine 08/15/2024 10:44 AM EDT URINE ALBUMIN / CREATININE RATIO Routine 08/15/2024 10:44 AM EDT PROTEIN / CREATININE RATIO, URINE Routine 08/15/2024 10:44 AM EDT RENAL FUNCTION PANEL Routine 08/15/2024 10:44 AM EDT CBC DIFF AMBIGUOUS DEFAULT - DO NOT USE Routine 08/15/2024 10:44 AM EDT from Last 3 Months Results * SPECIMEN STATUS REPORT (08/15/2024 10:44 AM EDT) Specimen Status Comment [facility] Comment: Ambig Abbrev RP10 Default Ambig Abbrev RP10 Default A hand-written panel/profile was received from your office. In accordance with the [facility] Ambiguous Test Code Policy dated September 2002, we have completed your order by using the closest currently or formerly recognized AMA panel. We have assigned Renal Panel (10), Test Code #333429 to this request. If this is not the testing you wished to receive on this specimen, please contact the [facility] Client Inquiry/Technical Services Department to clarify the test order. We appreciate your business. 08/15/2024 10:4 4 AM EDT 08/15/2024 us Sunday Franklin MD LAB BLOOD ORDERABLES Final Re sult [facility] [address] [place] [address] * (ABNORMAL) CBC Diff Ambiguous Default (08/15/2024 10:44 AM EDT) WBC 6.3 3.4 - 10.8 x10E3/uL [facility] RBC 4.82 3.77 - 5.28 x10E6/uL [facility] Hemoglobin 14.5 11.1 - 15.9 g/dL [facility] Hematocrit 46.1 34.0 - 46.6 % [facility] MCV 96 79 - 97 fL [facility] MCH 30.1 26.6 - 33.0 pg [facility] MCHC 31.5 31.5 - 35.7 g/dL [facility] RDW 15.6(H) 11.7 - 15.4 % [facility] Platelets 196 150 - 450 x10E3/uL [facility] Neutrophils Relative 66 Not Estab. % [facility] Lymphocytes Relative 22 Not Estab. % [facility] Monocytes 6 Not Estab. % [facility] Eosinophils Relative 5 Not Estab. % [facility] Basophils Relative 1 Not Estab. % [facility] Neutrophils Absolute 4.2 1.4 - 7.0 x10E3/uL [facility] Lymphocytes Absolute 1.4 0.7 - 3.1 x10E3/uL [facility] Monocytes Absolute 0.4 0.1 - 0.9 x10E3/uL [facility] Eosinophils Absolute 0.3 0.0 - 0.4 x10E3/uL [facility] Basophils Absolute 0.0 0.0 - 0.2 x10E3/uL [facility] Immature Granulocytes 0 Not Estab. % [facility] Immature Grans (Absolute) 0.0 0.0 - 0.1 x10E3/uL [facility] Comment: A hand-written panel/profile was received from your office. In accordance with the [facility] Ambiguous Test Code Policy dated September 2002, we have assigned CBC with Differential/Platelet, Test Code #[id number] to this request. If this is not the testing you wished to receive on this specimen, please contact the [facility] Client Inquiry/ Technical Services Department to clarify the test order. We appreciate your business. 08/15/2024 10:4 4 AM EDT 08/15/2024 Sunday Franklin MD LAB BLOOD ORDERABLES Final Re sult [facility] [address] [place] [address] * Protein, Total, Random Urine w/Creatinine (Protein/Creat Ratio) (08/15/2024 10:44 AM EDT) Creatinine, Ur 115.4 Not Estab. mg/dL [facility] Protein, Ur 22.7 Not Estab. mg/dL [facility] Urine Protein/Creatin ine Ratio 197 0 - 200 mg/g creat [facility] 08/15/2024 10:4 4 AM EDT 08/15/2024 Sunday Franklin MD LAB URINE ORDERABLES Final Re sult Performing Organization Address [facility]/ZIP Co de Phone Number [facility] [address] [place] [address] * Urine Albumin / Creatinine Ratio (08/15/2024 10:44 AM EDT) Albumin, Urine 24.2 Not Estab. ug/mL [facility] Albumin/Creatin ine Ratio 21 0 - 29 mg/g creat [facility] Comment: Normal: 0 - 29 Moderately increased: 30 - 300 Severely increased: >300 08/15/2024 10:4 4 AM EDT 08/15/2024 Sunday Franklin MD LAB URINE ORDERABLES Final Re sult Performing Organization Address City/[facility]/ZIP Co de Phone Number [facility] [address] [place] [address] * Vitamin D 25 Hydroxy (08/15/2024 10:44 AM EDT) Pathologist [facility] Vitamin D, 25-OH, Total 54.3 30.0 - 100.0 ng/mL [facility] Comment: Vitamin D deficiency has been defined by the [place] of [employer] and an Endocrine Society practice guideline as a level of serum 25-OH vitamin D less than 20 ng/mL (1,2). The Endocrine Society went on to further define vitamin D insufficiency as a level between 21 and 29 ng/mL (2). 1. IOM ([place] of [employer]). 2010. Dietary reference intakes for calcium and D. [place]: The National Academies Press. 2. Levy MF, Katie ESTRADA, Pat CUNNINGHAM, et al. Evaluation, treatment, and prevention of vitamin D deficiency: an Endocrine Society clinical practice guideline. JCEM. 2010; 96(7):1911-30. 08/15/2024 10:4 4 AM EDT 08/15/2024 Sunday Franklin MD LAB BLOOD ORDERABLES Final Re sult Performing Organization Address City/[facility]/ZIP Co de Phone Number [facility] [address] [place] [address] * PTH, Intact (08/15/2024 10:44 AM EDT) Pathologist [facility] PTH 27 15 - 65 pg/mL [facility] 08/15/2024 10:4 4 AM EDT 08/15/2024 Sunday Franklin MD LAB BLOOD ORDERABLES Final Re sult [facility] [address] [place] [address] * Magnesium (08/15/2024 10:44 AM EDT) Magnesium 2.2 1.6 - 2.3 mg/dL [facility] 08/15/2024 10:4 4 AM EDT 08/15/2024 us Sunday Franklin MD LAB BLOOD ORDERABLES Final Re sult [facility] [place] [address] [place] [address] * (ABNORMAL) Renal Function Panel (08/15/2024 10:44 AM EDT) Glucose 152(H) 70 - 99 mg/dL [facility] BUN 25 8 - 27 mg/dL [facility] Creatinine 1.37(H) 0.57 - 1.00 mg/dL [facility] eGFR CKD-EPI CR 2020 39(L) >59 mL/min/1.7 3 [facility] BUN/Creatinine Ratio 18 12 - 28 [facility] Sodium 139 134 - 144 mmol/L [facility] Potassium 5.1 3.5 - 5.2 mmol/L [facility] Chloride 109(H) 96 - 106 mmol/L [facility] Bicarbonate (CO2) 15(L) 20 - 29 mmol/L [facility] Calcium 10.1 8.7 - 10.3 mg/dL [facility] Phosphorus 3.4 3.0 - 4.3 mg/dL [facility] Albumin 3.9 3.7 - 4.7 g/dL [facility] 08/15/2024 10:4 4 AM EDT 08/15/2024 us Sunday Franklin MD LAB BLOOD ORDERABLES Final Re sult [facility] [address] [place] [address] from Last 3 Months Insurance [facility] MCR ([id number]) [facility] MCR ([id number]) Care Teams Automation Analyst Relationship Specialty Start Date End Date Sivan Otoole NP PCP - General Nurse Practitioner 09/11/21
== END 2024-10-31 13:00 | disposition home or self-care (01) ==
LOC: HO.ED 11:56
PROVIDERS: Physician Assistant Medical; Emergency Provider Emergency Medicine
DX: M54.16 Radiculopathy, lumbar region (principal); N39.0 Urinary tract infection, site not specified; I10 Essential (primary) hypertension; M54.50 Low back pain, unspecified
CPT/HCPCS: 36415; 72100; 80053; 81001; 83735; 85025; 87086; 96372; 99283; 99284; J1885

== ENCOUNTER → 2024-10-31 09:26 | Outpatient (BNV) | payer OTHER, SELFPAY | PROVIDERS: Visit Provider Radiology Diagnostic Radiology | DX: M47.896 Other spondylosis, lumbar region (principal) | CPT/HCPCS: 72100 ==

== ENCOUNTER 2024-11-29 07:53 | Outpatient (AMB) | payer OTHER, SELFPAY ==
--- OUTSIDE RECORDS SUMMARY | 2024-11-29 07:59 | XMS_ITS | Clinical Summary ---
Author Organization [facility] Address [address] [facility] [address] [place] [address] Phone Care Team Providers Care Dye Automation Operator Name Role Phone Sivan Otoole NP Primary [...] aneurysm without rupture 018 Seasonal allergy 05/04/2017 Immunizations Immunization Administration Dates Next Due Influenza [...] Visit [facility] [address] [place] [phone] Sunday Franklin MD [address] [facility] [address] [place] [address] Health Maintenance Due Date Last Done Comments Influenza Vaccine (#1) 2024 3, 12/11/2021, 12/11/2020, Additional history exists Pneumococcal Vaccine: 50+ Years Completed 02/08/2019, 01/23/2015 Hepatitis B Vaccine Aged Out No longe r eligible based on patient's age to complete this topic Insurance [facility] ([id number]) [place] [id number] [facility] ([id number]) [place] [phone] Care Teams Dye Automation Operator Relationship Specialty Start Date End Date Sivan Otoole NP PCP - General Nurse Practitioner 09/11/21
--- OUTSIDE RECORDS SUMMARY | 2024-11-29 07:59 | XMS_ITS | Clinical Summary ---
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
[2024-11-29 08:05] VITALS: BP 126/74; PULSE 78; TEMP 36.2; O2SAT 98; BMI 33.4
--- NOTE | 2024-11-29 08:05 | MHC.PC.OV ---
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 Transferring care from [facility] ([facility] ([employer] Medical records have been requested and have not received. 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 Manager Required: No Tennis Instructor: Not Required per policy Accompanied by: Self / Same As Patient Allergies No Known Allergies (No Known Allergies*) Allergy (Verified 11/29/24 08:18) Medication List - Last Reconciled 11/29/24 by Piper Kee PA-C amlodipine 2.5 mg PO DAILY atorvastatin 80 mg PO DAILY cyclobenzaprine 5 mg PO Q8H PRN fluticasone propionate 50 mcg/actuation (Flonase Allergy Relief) 1 spray intranasal DAILY ketotifen fumarate 0.025%(0.035%) 0 drps ophthalmic (eye) levothyroxine 50 mcg PO DAILY meclizine 25 mg PO BID PRN metoprolol succinate ER 25 mg PO DAILY Tobacco use date assessed: 11/29/24 Fall risk assessment: No Falls in past year Last assessed Fall Risk: 11/29/24 Dental Screening Dental Screen Date: 11/29/24 Did you have a dental visit in the last 12 months?: No Did you have a dental problem in the last 6 months where you did not have access to dental care?: No Was dental information given to patient?: Patient has dentist HPI 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 Presenting for a new patient visit and medication management. Hypertension Managed with amlodipine, recent BP 138/70 mmHg. She does report chronic back pain and has undergone physical therapy 3-4 times in the past most recently about 4 months ago. Her back pain is exacerbated by activity and is partially relieved with the use of cyclobenzaprine. She is requesting an MRI for further evaluation and treatment. She has a history of a myocardial infarction with a stent placement in 2021 and follows with [facility]. She also follows with an therapy assistant through [facility] for hypothyroidism. Blood work completed through [facility] [place]. [facility] Surgical History History of bilateral breast reduction surgery History of total left knee replacement History of heart artery stent History of ileostomy Family History Father Prostate cancer Brother Prostate cancer Other Substance use disorder Social History Housing: Assisted Living Facility Alcohol intake: never Patient Tobacco Use Status: Never used Tobacco Tobacco use type: Cigarette e-Cigarette/Vaping Use: Never Used Second Hand Smoke Exposure: No service: No Current occupational status: retired Cognitive needs: No Hearing needs: No Vision needs: Yes (Reading glasses) Questionnaire PHQ-9 Over the last 2 weeks, how often have you been bothered by any of the following problems? 1. Little interest or pleasure in doing things: more than half the days 2. Feeling down, depressed, or hopeless: more than half the days 3. Trouble falling or staying asleep, or sleeping too much: several days 4. Feeling tired or having little energy: several days 5. Poor appetite or overeating: not at all 6. Feeling bad about yourself - or that you are a failure or have let yourself or your family down: not at all 7. Trouble concentrating on things, such as reading the newspaper or watching television: not at all 8. Moving or speaking so slowly that other people could have noticed. Or the opposite - being so fidgety or restless that you have been moving around a lot more than usual: not at all 9. Thoughts that you would be better off or of hurting yourself in some way: not at all Total score: 6 Depression Screening Interpretation: Positive Depression Screening Follow-up: Declines treatment Depression Screening Done: Yes 47855 - PHQ-9 Billing: Yes Source: Developed by Drs. Adi Rosa, Jannette Raman, Melchor Da Silva and colleagues, with an educational pablito from [employer]. Thrive Questionnaire Date Thrive assessed: 11/29/24 I am a: Patient What is your living situation today?: I have a steady place to live Within the past 12 months, did the food you bought not last and you didn't have the money to get more?: Never true Within the past 12 months, did you worry whether your food would run out before you got money to buy more?: Never true Do you have trouble paying for medicines?: No Do you have trouble getting transportation to medical appointments?: No Do you have trouble paying your heating and electricity bill?: No Do you have trouble taking care of your child, family member or friend?: No Do you have trouble with day-to-day activities such as bathing, preparing meals, shopping, managing finances, etc.?: No Are you currently unemployed and looking for a job?: No Are you interested in more education?: No Please select the resources that you would like help with: None Currently or been in a relationship where the following occur: No concerns reported THRIVE Score: 0 AUDIT C Alcohol Use Questionnaire (AUDIT-C) 1. How often do you have a drink containing alcohol?: Never Total Score: 0 LINDA-7 AMB Questionnaire LINDA-7 Date LINDA - 7 assessed: 11/29/24 Feeling nervous, anxious, or on edge: 0 = Not at all Not being able to stop or control worryin = Not at all Worrying too much about different things: 0 = Not at all Trouble relaxin = Not at all Being so restless that it is hard to sit still: 0 = Not at all Becoming easily annoyed or irritable: 0 = Not at all Feeling afraid as if something awful might happen: 0 = Not at all Total LINDA-7 score (0-4 normal; 5-9 mild; 10-14 moderate; 15-21 severe): 0 Source: Developed by Drs. Adi Rosa, Jannette Raman, Melchor Da Silva and colleagues, with an educational pablito from [employer]. LINDA-7 Assessment Billing LINDA-7 Assessment Tool: LINDA-7 Assessment 19896 Review of Systems Const Denies body aches, Denies chills, Denies fever(s), Denies headache(s) and Denies poor appetite Eyes Reports no additional complaints ENT Denies dysphagia, Denies dizziness, Denies headache(s) and Denies odynophagia Card Denies chest pain, Denies syncope, Denies edema, Denies irregular heart rhythm, Denies lightheadedness and Denies dyspnea Resp Denies cough and Denies dyspnea GI Denies abdominal pain, Denies constipation, Denies dysphagia, Denies diarrhea, Denies nausea, Denies odynophagia and Denies vomiting Reports no additional complaints Musc Reports no additional complaints and Denies abnormal gait Skin/Breast Reports system reviewed and no additional complaints, except as documented Neuro Denies abnormal gait, Denies dizziness, Denies syncope and Denies headache(s) Psych Reports no additional complaints Physical exam (Primary Care) Vital Signs: Last Vital Signs Temp 97.1 F 11/29/24 08:05 Pulse 78 11/29/24 08:05 BP 126/74 11/29/24 08:05 Pulse Ox 98 11/29/24 08:05 Oxygen Delivery Method Room Air 11/29/24 08:05 BMI result Body Mass Index 33.4 Tobacco/Smoking Status: Tobacco use Status Tobacco use date assessed 11/29/24 11/29/24 08:06 Patient Tobacco Use Status Never used Tobacco 11/29/24 08:07 Tobacco use type Cigarette 11/29/24 08:07 e-Cigarette/Vaping Use Never Used 11/29/24 08:07 PHQ-9: PHQ-9 Score PHQ-9: Total score 6 11/29/24 08:24 Depression Screening Interpretation: Positive Depression Screening Follow-up: Declines treatment Thrive Assessment: Date of Thrive Assessment Date Thrive assessed 11/29/24 11/29/24 08:18 Currently or been in a relationship where the following occur: No concerns reported Const General: cooperative, healthy appearing, comfortable and no acute distress Orientation/consciousness: patient oriented x3 HENMT Head: Yes normocephalic Ears: hearing grossly normal bilaterally General nose exam: Normal external nose present Eyes General: appearance normal, both eyes and all related structures Conjunctivae: conjunctivae normal Neck Neck: Yes full ROM and Yes no lymphadenopathy Resp Effort & Inspection: normal respiratory effort Auscultation: clear to auscultation bilaterally, no crackles, no rales, no rhonchi and no wheezes Cardio Rate: regular rate Rhythm: regular rhythm Back/Spine/Pelvis Other: Pain to palpation of lumbar spine and paraspinal muscles Skin General skin exam: no rashes or lesions noted Neuro General: patient oriented x3 Gait exam (Neuro): Normal gait present Extrem General: Yes normal to inspection, Yes full ROM and No edema Psych Affect: normal affect Attitude: cooperative Insight: Good insight present (Psych) Judgement: Good judgement present (Psych) Coding Level of Care Code New Pt Level 4 (49731) Diagnoses Lumbar radiculopathy M54.16 Hypertension I10 Hypothyroidism E03.9 Hypercholesterolemia E78.00 Dry eyes H04.123 Myocardial infarction I21.9 Additional Codes LINDA-7 Assessment Billing - LINDA-7 Assessment Tool: LINDA-7 Assessment 06904 ([id number]) PHQ-9 - 59245 - PHQ-9 Billing: Yes ([id number]) Assessment & Plan Assessment & Plan (1) Lumbar radiculopathy: Code(s): M54.16 - Radiculopathy, lumbar region Category: Medical Plan: For lumbar radiculopathy plan to obtain MRI given patient has failed physical therapy 3-4 times in the past. She is declining referral to pain management at this time and declining additional physical therapy. She will continue to use cyclobenzaprine as needed and MRI was ordered today. (2) Hypertension: Code(s): I10 - Essential (primary) hypertension Category: Medical Plan: Continue on current blood pressure medication. Avoid salt intake and encourage healthy diet and regular exercise. (3) Hypothyroidism: Comment: Dr. Chaney [facility] Code(s): E03.9 - Hypothyroidism, unspecified Category: Medical Plan: Patient is currently following with Dr. Chaney through [facility]. Ordered for repeat blood work and continued on levothyroxine 50 mcg at this time. (4) Hypercholesterolemia: Code(s): E78.00 - Pure hypercholesterolemia, unspecified Category: Medical Plan: Avoid foods that are high in cholesterol such as red meat, fried foods, eggs and baked goods. Triglyceride goal of less than 150 and LDL goal of less than 70. Continue on atorvastatin 80 ordered for repeat blood work (5) Dry eyes: Comment: Dr. [facility] Code(s): H04.123 - Dry eye syndrome of bilateral lacrimal glands Category: Medical Plan: For dry eyes patient use ketotifen eyedrops (6) Myocardial infarction: Comment: 2021 w/ stent placed [facility] yearly Code(s): I21.9 - Acute myocardial infarction, unspecified Category: Medical Plan: The patient had a myocardial infarction three years ago, treated with stent placement. She is under the care of a industrial design intern and follows up annually. LDL goal less than 70, blood pressure goal less than 130/90 and continue to monitor blood sugars as well. She is no longer on dual antiplatelet therapy. Per patient report she was advised not to increase her blood pressure medications by her industrial design intern and I will plan to obtain these notes. Plan Patient was informed and verbally consented to the use of an ambient scribe for clinic note documentation during this visit. This note was constructed using voice recognition software. While every effort has been made to ensure accuracy and hand tennis ball coverer, still areas may have been included sometimes these areas may affect the content or meeting of the given symptoms. Total time spent caring for the patient today was 30 minutes. This includes time spent before the visit reviewing the chart, time spent during the visit, and time spent after the visit and documentation. Orders: Orders Free T4 (Free Thyroxine) Today E03.9 - Hypothyroidism, unspecified, Z00.00 - Encounter for general adult medical examination without abnormal findings Lipid Panel Today E78.00 - Pure hypercholesterolemia, unspecified Vitamin B12 and Folate Today Z13.21 - Encounter for screening for nutritional disorder Vitamin D 25-OH Total Today Z13.21 - Encounter for screening for nutritional disorder Complete Blood Count Auto Diff Today I10 - Essential (primary) hypertension, Z00.00 - Encounter for general adult medical examination without abnormal findings Comprehensive Met. Panel Today I10 - Essential (primary) hypertension, Z00.00 - Encounter for general adult medical examination without abnormal findings Hemoglobin A1c Today Z13.1 - Encounter for screening for diabetes mellitus MR lumbar spine wo con Today M54.16 - Radiculopathy, lumbar region TSH reflex Free T4 Today E03.9 - Hypothyroidism, unspecified, Z13.29 - Encounter for screening for other suspected endocrine disorder Medications: New atorvastatin 80 mg PO DAILY 90 tabs 1RF cholecalciferol (vitamin D3) 25 mcg PO DAILY 90 caps 3RF levothyroxine 50 mcg PO DAILY 90 tabs 0RF aspirin 81 mg PO DAILY 90 tabs 0RF calcium carbonate 500 mg PO DAILY 90 tabs 0RF metoprolol succinate ER 25 mg PO DAILY 90 tabs 1RF Changed From amlodipine 2.5 mg PO DAILY To amlodipine 2.5 mg (1/2 x 5 mg) PO DAILY 45 tabs 0RF 90 days From ketotifen fumarate 0.025%(0.035%) ophthalmic (eye) To ketotifen fumarate 0.025%(0.035%) 1 drp ophthalmic (eye) BID PRN 5 mL 0RF allergy symptoms Refilled cyclobenzaprine 5 mg PO Q8H PRN 20 tabs 0RF Muscle Spasm fluticasone propionate 50 mcg/actuation (Flonase Allergy Relief) administer into each nostril 1 spray intranasal DAILY 16 grams 0RF Discontinued meclizine Discontinued Reason: Patient no longer taking 25 mg PO BID PRN 30 tabs 0RF dizziness
[2024-11-29 08:39] VITALS: BP 138/80
== END 2024-11-29 08:50 | disposition home or self-care (01) ==
LOC: HO.HMCH 07:54
DX: M54.16 Radiculopathy, lumbar region (principal); I25.2 Old myocardial infarction; I10 Essential (primary) hypertension; E03.9 Hypothyroidism, unspecified; E78.00 Pure hypercholesterolemia, unspecified; H04.123 Dry eye syndrome of bilateral lacrimal glands

== ENCOUNTER → 2024-11-29 07:53 | Outpatient (BNVA) | payer OTHER, SELFPAY | DX: I10 Essential (primary) hypertension (principal); E78.00 Pure hypercholesterolemia, unspecified; E03.9 Hypothyroidism, unspecified; I25.2 Old myocardial infarction; M54.16 Radiculopathy, lumbar region; H04.123 Dry eye syndrome of bilateral lacrimal glands; I21.9 Acute myocardial infarction, unspecified | CPT/HCPCS: 96127; 99202 ==

== ENCOUNTER 2024-12-19 13:29 | Outpatient (AMB) | payer OTHER, SELFPAY ==
--- NOTE | 2024-12-19 13:34 | MHC.PC.OV ---
Vital Signs 12/19/24 13:35 Height 5 ft 1.61 in Weight 182 lb 2 oz BMI 33.7 BP 134/82 Blood Pressure Location Lt brachial Position Sitting Pulse 78 Pulse Source Pulse Oximeter Temp 97.5 F Temp Source Temporal Artery Scan Pulse Oximetry (%) 96 Oxygen Delivery Method Room Air Intake Visit Reasons: Severe Neck Pain Intake Note: Patient is here to follow up on Severe Neck pain. Agility Instructor Required: No Multimedia Production Assistant: Not Required per policy Accompanied by: Self / Same As Patient Allergies No Known Allergies (No Known Allergies*) Allergy (Verified 12/19/24 13:34) Medication List - Last Reconciled 12/19/24 by Demarcus Galindo MD amlodipine 2.5 mg (1/2 x 5 mg) PO DAILY 90 days aspirin 81 mg PO DAILY atorvastatin 80 mg PO DAILY calcium carbonate 500 mg PO DAILY cholecalciferol (vitamin D3) 25 mcg PO DAILY cyclobenzaprine 5 mg PO Q8H PRN fluticasone propionate 50 mcg/actuation (Flonase Allergy Relief) 1 spray intranasal DAILY ketotifen fumarate 0.025%(0.035%) 1 drp ophthalmic (eye) BID PRN levothyroxine 50 mcg PO DAILY metoprolol succinate ER 25 mg PO DAILY Tobacco use date assessed: 12/19/24 Fall risk assessment: No Falls in past year Last assessed Fall Risk: 12/19/24 Dental Screening Dental Screen Date: 11/29/24 HPI HPI Comments History of Present Illness Details The patient is an 84-year-old female presenting with persistent neck pain. The neck pain has been present for approximately one month and is described as severe and persistent, sometimes worsening with movement. The pain occasionally radiates to the shoulder but not to the arms, and it is not alleviated by [id number] medications such as Tylenol. The patient has a history of arthritis, which was diagnosed during a previous clinic visit. Muscle relaxants were previously prescribed and provided relief for back pain but did not alleviate the neck pain. The patient has a history of ulcerative colitis, which led to an ileostomy. Due to this condition, the patient has been advised against taking ibuprofen, which was previously effective in managing pain. [facility] Surgical History History of bilateral breast reduction surgery History of total left knee replacement History of heart artery stent History of ileostomy Family History Father Prostate cancer Brother Prostate cancer Other Substance use disorder Social History Housing: Assisted Living Facility Alcohol intake: never Patient Tobacco Use Status: Never used Tobacco Tobacco use type: Cigarette e-Cigarette/Vaping Use: Never Used Second Hand Smoke Exposure: No service: No Current occupational status: retired Cognitive needs: No Hearing needs: No Vision needs: Yes (Reading glasses) Questionnaire PHQ-9 Over the last 2 weeks, how often have you been bothered by any of the following problems? 5. Poor appetite or overeating: not at all 6. Feeling bad about yourself - or that you are a failure or have let yourself or your family down: several days 7. Trouble concentrating on things, such as reading the newspaper or watching television: not at all 8. Moving or speaking so slowly that other people could have noticed. Or the opposite - being so fidgety or restless that you have been moving around a lot more than usual: not at all 9. Thoughts that you would be better off or of hurting yourself in some way: not at all Source: Developed by Drs. Adi Rosa, Jannette Raman, Melchor Da Silva and colleagues, with an educational pablito from [employer]. Thrive Questionnaire Date Thrive assessed: 11/29/24 I am a: Patient What is your living situation today?: I have a steady place to live Within the past 12 months, did the food you bought not last and you didn't have the money to get more?: Never true Within the past 12 months, did you worry whether your food would run out before you got money to buy more?: Never true Do you have trouble paying for medicines?: No Do you have trouble getting transportation to medical appointments?: No Do you have trouble paying your heating and electricity bill?: No Do you have trouble taking care of your child, family member or friend?: Yes Do you have trouble with day-to-day activities such as bathing, preparing meals, shopping, managing finances, etc.?: No Are you currently unemployed and looking for a job?: No Are you interested in more education?: No Please select the resources that you would like help with: None Currently or been in a relationship where the following occur: No concerns reported THRIVE Score: 0 AUDIT C Alcohol Use Questionnaire (AUDIT-C) 1. How often do you have a drink containing alcohol?: Never Total Score: 0 LINDA-7 AMB Questionnaire LINDA-7 Date LINDA - 7 assessed: 11/29/24 Feeling nervous, anxious, or on edge: 0 = Not at all Not being able to stop or control worryin = Not at all Worrying too much about different things: 0 = Not at all Trouble relaxin = Not at all Being so restless that it is hard to sit still: 0 = Not at all Becoming easily annoyed or irritable: 0 = Not at all Feeling afraid as if something awful might happen: 0 = Not at all Total LINDA-7 score (0-4 normal; 5-9 mild; 10-14 moderate; 15-21 severe): 0 Source: Developed by Drs. Adi Rosa, Jannette Raman, Melchor Da Silva and colleagues, with an educational pablito from [employer]. Review of Systems Const Details: Positives besides what was mentioned in HPI are in BOLD Constitutional: No Weight Change, No Fever, No Chills, No Night Sweats, No Fatigue, No Malaise ENT/Mouth: No Hearing Changes, No Ear Pain, No Nasal Congestion, No Sinus Pain, No Hoarseness, No sore throat, No Rhinorrhea, No Swallowing Difficulty Eyes: No Eye Pain, No Swelling, No Redness, No Foreign Body, No Discharge, No Vision Changes Cardiovascular: No Chest Pain, No SOB, No PND, No Dyspnea on Exertion, No Orthopnea, No Claudication, No Edema, No Palpitations Respiratory: No Cough, No Sputum, No Wheezing, No Smoke Exposure, No Dyspnea Gastrointestinal: No Nausea, No Vomiting, No Diarrhea, No Constipation, No Pain, No Heartburn, No Anorexia, No Dysphagia, No Hematochezia, No Melena, No Flatulence, No Jaundice Genitourinary: No Dysmenorrhea, No DUB, No Dyspareunia, No Dysuria, No Urinary Frequency, No Hematuria, No Urinary Incontinence, No Urgency, No Flank Pain, No Urinary Flow Changes, No Hesitancy Musculoskeletal: No Arthralgias, No Myalgias, No Joint Swelling, No Joint Stiffness, No Back Pain, No Neck Pain, No Injury History Skin: No Skin Lesions, No Pruritis, No Hair Changes, No Breast/Skin Changes, No Nipple Discharge Neuro: No Weakness, No Numbness, No Paresthesias, No Loss of Consciousness, No Syncope, No Dizziness, No Headache, No Coordination Changes, No Recent Falls Psych: No Anxiety/Panic, No Depression, No Insomnia, No Personality Changes, No Delusions, No Rumination, No SI/HI/AH/VH, No Social Issues, No Memory Changes, No Violence/Abuse Hx., No Eating Concerns Heme/Lymph: No Bruising, No Bleeding, No Transfusions History, No Lymphadenopathy Endocrine: No Polyuria, No Polydipsia, No Temperature Intolerance Physical exam (Primary Care) Vital Signs: Last Vital Signs Temp 97.5 F 12/19/24 13:35 Oxygen Delivery Method Room Air 12/19/24 13:35 BMI result Body Mass Index 33.7 Tobacco/Smoking Status: Tobacco use Status Tobacco use date assessed 11/29/24 11/29/24 08:06 Patient Tobacco Use Status Never used Tobacco 11/29/24 08:07 Tobacco use type Cigarette 11/29/24 08:07 e-Cigarette/Vaping Use Never Used 11/29/24 08:07 Thrive Assessment: Date of Thrive Assessment Date Thrive assessed 11/29/24 11/29/24 08:18 Currently or been in a relationship where the following occur: No concerns reported Const Other: Pertinent findings are in BOLD GENERAL APPEARANCE NAD, activity normal for age, well developed/ well nourished, no cyanosis, pallor, or diaphoresis. EYES lids/conjunctiva normal. EARS/NOSE/THROAT Mucous membranes moist, nares normal, lips/teeth normal uvula midline without oral pharyngeal erythema, exudate or swelling TMs normal bilaterally. No lymphangitis/lymphedema. HEAD/NECK normocephalic atraumatic, no facial trauma, neck is supple. RESPIRATORY respiratory effort normal, speaks in full sentences, no tripod position, no accessory muscle use. Lungs clear to auscultation without rhonchi, wheezes, rales CARDIAC Regular rate and rhythm, no edema. ABDOMINAL Soft, ND/NT. No evidence of fluid wave. No pulsatile masses on exam, rebound tenderness, Dalton sign or pain over Mcburney's point. MUSCLES/EXTREMITIES No abnormal range of motion, no swelling. SKIN Warm, pink and dry. No rashes, dermatoses, petechiae or lesions. NEUROLOGICAL Speech is clear and appropriate. Normal level of consciousness. Gait and coordination are normal. 5/5 strength in all extremities. PSYCH Normal mood and affect. Judgement/competence is appropriate Coding Level of Care Code Est Pt Level 3 (68068) Diagnoses Cervicalgia M54.2 Time Spent (min) 20 Assessment & Plan Assessment & Plan (1) Cervicalgia: Code(s): M54.2 - Cervicalgia Category: Medical Plan: - Schedule MRI for neck to assess underlying causes. - Prescribe muscle relaxants to manage symptoms. - Refer to physical therapy post-MRI to address pain and improve function. Plan I discussed with the patient the plan to schedule an MRI for the neck to better understand the cause of her pain. We also talked about the use of muscle relaxants to help manage her symptoms and the potential benefits of physical therapy after obtaining MRI results. Additionally, I advised her to avoid NSAIDs like ibuprofen due to her history of ulcerative colitis and the associated risks. Orders: Orders MR cervical spine wo con Today M54.2 - Cervicalgia PT Evaluation and Treatment Today M54.2 - Cervicalgia Medications: New diclofenac sodium 1% (Voltaren Arthritis Pain) apply to single elbow, wrist or hand; for hand includes palm/fingers/back of hand 2 grams topical QID 50 grams 0RF Refilled cyclobenzaprine 5 mg PO Q8H PRN 30 tabs 1RF Muscle Spasm
[2024-12-19 13:35] VITALS: BP 134/82; PULSE 78; TEMP 36.4; O2SAT 96; BMI 33.7
--- OUTSIDE RECORDS SUMMARY | 2024-12-19 15:53 | XMS_ITS | Clinical Summary ---
Author Organization [facility] Address [address] [place] [address] Phone Care Team Providers Care Editor In Chief Name Role Phone Chandra Chaney DO Unavailable Sunday Franklin MD Unavailable [phone] Pcp, Unknown Primary Care Provider Unavailabl e Allergies No known active allergies Medications aspirin 81 mg chewable tablet Take 1 tablet (81 mg total) by mouth daily. 90 tablet 3 07/20/19 19 Active calcium carbonate 1,250 mg (500 mg elemental) capsule Take 1 capsule (1,250 mg total) by mouth daily. 90 capsule 3 07/20/19 19 Active acetaminophen (TYLENOL) 500 MG tablet Take 650 mg by mouth every 4 (four) hours as needed for pain (specific location in comments). Active cholecalciferol (VITAMIN D3) 25 MCG (1,000 unit) tablet Take 1 tablet (1,000 Units total) by mouth daily. 90 tablet 2 07/12/19 22 Active ascorbic acid, vitamin C, (VITAMIN C) 500 MG tablet Take 500 mg by mouth daily. Active ketotifen (ZADITOR) 0.025 % (0.035 %) ophthalmic solution prn 03/20/19 23 Active fluticasone propionate (FLONASE) 50 mcg/actuation nasal sprayIndications:S easonal allergic rhinitis, unspecified trigger 1 spray by Nasal route daily. 16 mL 11 10/12/19 24 Active ostomy supplies (ACTIVE LIFE DRAINABLE POUCH) Misc 1 Bag by Miscellaneous route daily. 1 inch diameter 32mm opening pre cut, 25mm length 100 each 3 12/22/19 24 Active ostomy supplies Misc 1 Application by Miscellaneous route daily. Elizalde [employer]iva[employer] protective wipes Daily use 100 each 3 12/22/19 24 Active metoprolol succinate (TOPROL-XL) 25 MG 24 hr tabletIndications: Essential hypertension TAKE 1 TABLET BY MOUTH DAILY. 90 tablet 3 04/05/19 25 Active amLODIPine (NORVASC) 5 MG tabletIndications: Essential hypertension TAKE (1/2) TABLET BY MOUTH ONCE DAILY 45 tablet 3 05/04/19 25 Active mometasone (NASONEX) 50 mcg/actuation nasal spray 2 sprays by Nasal route daily. 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 90 tablet 4 10/22/19 25 Active atorvastatin (LIPITOR) 80 MG tabletIndications: Mixed hyperlipidemia TAKE 1 TABLET BY MOUTH ONCE DAILY 90 tablet 11/04/19 25 Active Active Problems Problem Noted Date Diagnosed Date ASCVD (arteriosclerotic cardiovascular disease) 06/20/2022 Stage 3a chronic kidney disease 10/31/[address] elevation myocardial infarction (S SIMONE) 09/05/2021 Overview (09/05/2021): August 2021 s/p FRED x 1 distal RCA, 40% stenosis to mid-RCA Nontoxic uninodular goiter 08/16/2021 Overview (10/23/2022): Is a patient with nodular goiter since 07/16/2017. Ultrasound done at [facility] on 01/09/2021. Showed that she has a large right mid lower pole nodule measuring 4.4 x 2.7 x 4.4 cm. It was biopsied on 07/17/2021 and was found to be benign. Did ultrasound at [facility] on 07/17/2022, see the report below. Final measures 5.6 x 2.8 x 3.3 cm and is enlarged. The left lobe measures 3.1 x 1.9 x 0.9 cm Isthmus measures 0.9 cm. Within the right lobe of this nodule measuring 4.1 x 2.8 x 3.4 cm classified as TI-RADS 3. It is solid, hypoechoic. The nodule is smaller in size and does not require repeat biopsy. At this point I recommend repeating the ultrasound 2 years later by 07/17/2024. Assessment & Plan (10/21/2024 1:03 PM EDT): The dominant right lobe nodule grew by 34% in 2 years time of 17% in 1 year. This is not considered significant so at this point we will repeat the ultrasound in 3 years time by 07/19/2027. Assessment & Plan (10/20/2023 12:10 PM EDT): The patient is due to repeat ultrasound by 07/2024 this has been requested. Assessment & Plan (10/23/2022 12:09 PM EDT): Right lobe nodule is smaller in size. She does not require repeat biopsy. She should repeat the ultrasound by 07/17/2024. Assessment & Plan (07/14/2022 11:23 AM EDT): She is scheduled for August 16, 2022 for ultrasound I have her come back in 3 months. Assessment & Plan (11/28/2021 11:39 AM EDT): She has not done her ultrasound and I asked her to contact radiology to get this study done. Assessment & Plan (08/16/2021 1:13 PM EDT): Patient has a nontoxic uninodular goiter with a right mid lower pole nodule measuring 4.4 x 2.7 x 4.4 cm that she is known since 2018. Last ultrasound was done on 08/10/2019. Ultrasound-guided fine-needle aspiration done on 07/17/2021 was benign. I will request a repeat ultrasound for monitoring in 1 year x 07/17/2022. 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 Assessment & Plan (10/20/2023 12:18 PM EDT): Chemically and clinically euthyroid continue levothyroxine 50 mcg repeat thyroid function studies in 1 year. Assessment & Plan (10/23/2022 12:09 PM EDT): Chemically and clinically euthyroid continue levothyroxine 50 mcg repeat thyroid function studies prior to the follow-up visit in 1 year. Assessment & Plan (07/14/2022 11:23 AM EDT): Chemically and clinically euthyroid on levothyroxine 50 mcg she should just continue the current dose of medication. Assessment & Plan (11/28/2021 11:38 AM EDT): Patient is chemically and clinically euthyroid. We will not change the dose of the prescription she should continue levothyroxine 50 mcg. She is having fatigue but this is probably due to insomnia. She cannot sleep at night but she sleeps during the day. I told her she is to try to go through the day without sleeping so that she can get a good night sleep. Indicates I will request thyroid function studies to be done prior to the follow-up visit. Since she has an ultrasound that needs to be done I will just ask her to come back in 6 months. Assessment & Plan (08/16/2021 1:20 PM EDT): The patient is now in a hypothyroid [...] iron within 4 hours of levothyroxine administration. Decreased thyroid stimulating hormone (TSH) leve l 07/19/2021 Overview (12/22/2023): Last Assessment & Plan: The patient was found to have low TSH level. She does not have any symptoms of hyperthyroidism just occasional symptoms of tremors palpitations and heat intolerance. I will repeat thyroid function studies also check TBII and thyroglobulin antibodies. Assessment & Plan (07/19/2021 1:14 PM EDT): The patient was found to have low TSH level. She does not have any symptoms of hyperthyroidism just occasional symptoms of tremors palpitations and heat intolerance. I will repeat thyroid function studies also check TBII and thyroglobulin antibodies. History of HPV infection 06/07/2020 Low bicarbonate level 01/04/2020 Status post total left knee replacement 11/06/19 Allergic rhinitis 05/04/2017 Anxiety 05/04/2017 Depression 05/04/2017 Diastolic dysfunction 05/04/2017 Essential hypertension 05/04/[address] 05/04/2017 Mixed hyperlipidemia 05/04/2017 Personal history of pulmonary embolism 8 Seasonal allergies 05/04/2017 Thoracic aortic aneurysm without rupture 018 Ulcerative colitis 05/04/2017 Nocturnal hypoxemia 05/04/2017 Encounters Date Type Department Care Team Description 11/11/[address] [place] [address] Paulina Ac MA DME Paperwork 11/04/[address] [place] [address] Silvino Umaña, CANDIDO Request For Records 11/03/2024 Refill [facility] Internal Medicine [address] [place] [address] Lorrie Esquivel PA-C Medication Refill 10/21/2024 12:10 PM EDT Office Visit [facility] [address] [place] [address] [place] [address] Chandra Chaney DO 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 (Primary Dx); Nontoxic uninodular goiter 10/11/2024 Orders Only [facility] [address] [place] [address] Dilcia Schwarz MA 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 10/03/2024 Refill [facility] [address] [place] [address] Sapna Richardson MA from Last 3 Months Immunizations Immunization Administration Dates Next Due COVID-19 (Pre-01/05) Moderna Vaccine, mRNA, PF 05/30/2020,05/02/2020 COVID-19 Pfizer Comirnaty Vaccine 12+ 01/02/2023 Influenza High-Dose Quadriva lent Preservative Free IM 12/11/2020,12/26/2019 Influenza High-Dose Trivalen t Preservative Free IM 12/11/2021,12/16/2018,12/25/2017,01/09,12/11/2015,12/28/2014 Influenza Quadrivalent Adjuv anted Preservative Free IM 12/16/2022 Influenza, Unspecified Formulation 12/26/2019 Pneumococcal conjugate PCV13 01/23/2015 Pneumococcal conjugate PCV20 12/16/2022 Pneumococcal polysaccharide PPSV23 02/08/2019 Tdap 02/08/2019 Zoster live 03/12/2016 Zoster recombinant 03/11/2021,01/06/2021 Family History Medical History Relation Comments Stroke Brother 1 Prostate cancer Brother 2 Drug use disorder Daughter Cancer Father Glaucoma Father Prostate cancer Father Thyroid disease Mother Drug use disorder Nephew Cancer Sibling Dementia Sister 1 Thyroid disease Sister 1 Dementia Sister 2 Thyroid disease Sister 3 Thyroid disease Sister 4 Thyroid disease Sister 5 No Known Problems Son Relation Status Comments Brother 1 Brother 2 Alive Daughter Alive Father (Age 85) Granddaughter Alive Mother Nephew Sibling Alive Sister 1 Sister 2 Sister 3 Alive Sister 4 Alive Sister 5 Alive Son Alive Social History Tobacco Use Types Packs/Day Years Used Date Smoking Tobacco: Former Cigarettes 1 - 1993 Smokeless Tobacco: Never Comments:socially Alcohol [...] file Not on file Not on file Last Filed Vital Signs Vital Sign Reading Time Taken Comments Blood Pressure 142/82 10/21/2024 11:56 AM EDT Pulse 68 10/21/2024 11:56 AM EDT Temperature 36.3 C (97.3 F) 10/21/2024 11:56 AM EDT Respiratory Rate 20 12/22/2023 11:32 AM EDT Oxygen Saturation 98% 10/21/2024 11:56 AM EDT Inhaled Oxygen Concentration - - Weight 79.8 kg (176 lb) 10/21/2024 11:56 AM EDT Height 159.5 cm (5' 2.8 ) 10/21/2024 11:56 AM ED T Body Mass Index 31.38 10/21/2024 11:56 AM EDT Plan of Treatment Upcoming Encounters Date Type Department Care Team (Late st Contact Info) Description 10/24/2025 11:10 AM EDT Office Visit [facility] [address] [place] [address] Chandra Chaney DO [address] [place] [address] Health Maintenance Due Date Last Done Comments DEPRESSION SCREENING 07/11/2022 07/11/2021 INFLUENZA VACCINE (#1) 2024 , 12/11/2021, 12/11/2020, Additional history exists COVID-19 VACCINE ( season) 2024 01/02/2023, 12/05/2021, 09/20/2021, Additional history exists BLOOD PRESSURE 04/23/2025 10/21/2024 OSTEOPOROSIS SCREENING INITIAL (ONE-TIME) 10/04/2025 Postponed from 2006 (Patient Declines / Guardian Declines) TSH LEVEL 10/11/2025 10/11/2024, 09/15, 10/17/2022, Additional history exists Adult Td,Tdap Booster 02/08/2029 02/08/2019 ZOSTER VACCINES Completed 03/11/2021, 12/15, 03/12/2016 PNEUMOCOCCAL VACCINES (50+ years) Completed 12/16/2022, 02/08/2019, 01/23/2015 RSV VACCINE Completed 02/03/2024 HEPATITIS A VACCINES Aged Out No long er eligible based on patient's age to complete this topic HIB VACCINES Aged Out No longer eligi ble based on patient's age to complete this topic MENINGOCOCCAL VACCINES (ACWY) Aged Out No longer eligible based on patient's age to complete this topic MENINGOCOCCAL VACCINES (B) Aged Out N o longer eligible based on patient's age to complete this topic Medical Devices Not on file Procedures Procedure Name Priority Date/Time Associated Diagnosis Comments TSH Routine 10/11/2024 10:33 AM EDT 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 FREE T4 Routine 10/11/2024 10:33 AM EDT 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 from Last 3 Months Results * TSH (10/11/2024 10:33 AM EDT) Blood us Chandra Chaney DO LAB BLOOD ORDERABLES Final Resul t Performing Organization Address City/[facility] [address]/ZIP Co de Phone Number [address] [phone] * Free T4 (10/11/2024 10:33 AM EDT) Blood Chandra Chaney DO LAB BLOOD ORDERABLES Final Resul t Performing Organization Address City/[facility] [address]/ZIP Co de Phone Number [address] [phone] from Last 3 Months Insurance MEDICARE REPLACEMENT MEDICARE REPLACEMENT MEDICARE REPLACEMENT MEDICARE REPLACEMENT [facility] MEDICARE REPLACEMENT [facility] MEDICARE REPLACEMENT [facility] MEDICARE REPLACEMENT MEDICARE REPLACEMENT [facility] MEDICARE REPLACEMENT Care Teams Editor In Chief Relationship Specialty Start Date End Date Pcp, Unknown PCP - General 12/07/24 Chandra Chaney DO [address] [place] [address] Endocrinology 8/25/23 Franklin MD [address] [facility] [address] [place] [address] [email or web address] 11/07/22 Additional Source Comments The information contained in this document represents components of the legal health record. It is not the complete legal health record.[facility]
--- OUTSIDE RECORDS SUMMARY | 2024-12-19 15:53 | XMS_ITS | Clinical Summary ---
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
--- OUTSIDE RECORDS SUMMARY | 2024-12-19 15:53 | XMS_ITS | Encounter Summary ---
Author Organization [facility] Address [address] [facility] [address] [place] [address] Phone Care Team Providers Care Raftsman Name Role Phone Chandra Chaney DO Unavailable Sunday Franklin MD Unavailable [phone] Silvino Umaña CNP Primary Care Provider Pcp, Unknown Primary Care Provider Unavailabl e Encounter Details Date Type Department Care Team (Late st Contact Info) Description 07/24/2023 Procedure Pass [facility], Ct Scan - [address] [address] Social History Tobacco Use Types Packs/Day Years [...] 11:10 AM EDT Office Visit [facility] [address] [place] [address] Chandra Chaney DO [address] [place] [address] [email or web address] documented as of this encounter Visit Diagnoses Not on filedocumented in this encounter Additional Health Concerns Assessment Noted Time PHQ-2 Depression Total Score: 0 07/12/19 22 11:22 AM EDT documented as of this encounter Care Teams Raftsman Relationship Specialty Start Date End Date Silvino Umaña CNP [address] [facility] [place] [address] [email or web address] PCP - General Family Medicine 05/20/23 12/06/24 Pcp, Unknown PCP - General 12/07/24 Chandra Chaney DO [address] [place] [address] [email or web address] Endocrinology 11/07/22 Franklin MD 100 [facility] Ele [facility] 200 [place] [address] [email or web address] 11/07/22 documented as of this encounter Additional Source Comments The information contained in this document represents components of the legal health record. It is not the complete legal health record.[facility]
--- OUTSIDE RECORDS SUMMARY | 2024-12-19 15:53 | XMS_ITS | Encounter Summary ---
Author Organization [facility] Address [address] [facility] [address] [place] [address] Phone Care Team Providers Care Mobility Architect Name Role Phone Sivan Otoole NP Primary Care Provider Chandra Chaney DO Unavailable Sunday Franklin MD Unavailable [phone] Silvino Umaña METAL DRILLING MACHINE OPERATOR Primary Care Provider Pcp, Unknown Primary Care Provider Unavailabl e Encounter Details Date Type Department Care Team (Late st Contact Info) Description 06/13/2021 Procedure Pass [facility], [facility] [address] [place] [address] Social History Tobacco Use Types Packs/Day Years Used Date Smoking Tobacco: Former Cigarettes 1 4 - 1993 Smokeless Tobacco: Never Comments:socially Alcohol Use Standard Drinks/Week Comments Yes 0 (1 standard drink = 0.6 oz pur e alcohol) rarely, 1-2 x year Comments Unknown Sex and Gender Information Value Date Recorded Sex Assigned at Not on file Legal Sex Female 10:11 PM EDT Gender Identity Not on file Sexual Orientation Not on file documented as of this encounter Plan of Treatment Upcoming Encounters Date Type Department Care Team (Late st Contact Info) Description 10/24/2025 11:10 AM EDT Office Visit [facility] [address] [place] [address] [place] [address] [email or web address] documented as of this encounter Visit Diagnoses Not on filedocumented in this encounter Additional Health Concerns Assessment Noted Time PHQ-2 Depression Total Score: 0 07/12/19 22 11:22 AM EDT documented as of this encounter Care Teams Mobility Architect Relationship Specialty Start Date End Date Sivan Otoole, DUTY OFFICER PCP - General 02/13/17 05/19/23 Silvino Umaña, CANDIDO [address] [facility] [place] [address] [email or web address] PCP - General Family Medicine 05/20/23 12/06/24 Pcp, Unknown PCP - General 12/07/24 Chandra Chaney DO [address] [place] [address] [email or web address] Endocrinology 11/07/22 rFanklin MD 100 [facility] 200 [place] [address] [email or web address] Nephrology 11/07/22 documented as of this encounter Additional Source Comments The information contained in this document represents components of the legal health record. It is not the complete legal health record.[facility]
== END 2024-12-19 13:56 | disposition home or self-care (01) ==
LOC: HO.HMCH 13:30
PROVIDERS: Visit Provider Internal Medicine
DX: M54.2 Cervicalgia (principal)

== ENCOUNTER → 2024-12-19 13:29 | Outpatient (BNVA) | payer OTHER, SELFPAY | PROVIDERS: Visit Provider Internal Medicine | DX: M54.2 Cervicalgia (principal); Z93.2 Ileostomy status | CPT/HCPCS: 99212 ==

== ENCOUNTER → 2025-01-18 11:10 | Outpatient (BNV) | payer OTHER, SELFPAY | PROVIDERS: Visit Provider Radiology Diagnostic Radiology | DX: M50.30 Other cervical disc degeneration, unspecified cervical region (principal); M47.25 Other spondylosis with radiculopathy, thoracolumbar region; M99.61 Osseous and subluxation stenosis of intervertebral foramina of cervical region; M99.62 Osseous and subluxation stenosis of intervertebral foramina of thoracic region; M99.64 Osseous and subluxation stenosis of intervertebral foramina of sacral region | CPT/HCPCS: 72141; 72148 ==

== ENCOUNTER 2025-01-18 11:19 | Outpatient (REF) | payer OTHER, SELFPAY ==
--- NOTE | ~2025-01-18 | MR_ITS ---
EXAMINATION: MR LUMBAR SPINE WITHOUT CONTRAST CLINICAL INFORMATION: M 54.16 COMPARISON: Correlated to x-ray dated October 31, 2024. TECHNIQUE: MRI of the lumbar spine was obtained using routine sequences without contrast. FINDINGS: There is a sacralized vertebra labeled S1. Probable Fer type I sacralization. Non-rib T12. Prominent right transverse processes of L5 articulating to the sacrum (this is the sacralized vertebra.). Paramagnetic field distortion secondary to metallic clips in the lower pelvis/presacral. There is mild bone marrow STIR signal at the endplates of L1-2 and inferior endplate of T11. Multilevel marginal osteophyte formation and endplate irregularity, decreased intervertebral disc height and subchondral cyst formation at T11-T12, L1 to and to a lesser extent L3-4. Bone marrow inhomogeneity. Grade 1 anterolisthesis L4-5. Grade 1 retrolisthesis L1-2 and L3-4. S-shaped curvature of the thoracolumbar spine. Conus medullaris ends at inferior endplate of T12 with normal signal. T11-12: No disc herniation. T12-L1: No disc herniation. Facet joint and ligamentum flavum hypertrophy. No compression upon neural elements. L1-2: Broad-based disc bulging. Facet joint and ligamentum flavum hypertrophy. Central spinal canal and bilateral neuroforamina stenosis encroaching the neural elements. L2-3: Broad-based disc bulging. Facet joint ligamentum flavum hypertrophy. Central spinal canal and bilateral neuroforamina stenosis encroaching the neural elements. L3-4: Broad-based disc bulging. Facet joint ligamentum flavum hypertrophy. Central spinal canal and bilateral neuroforamina stenosis encroaching the neural elements. L4-5: Broad-based disc bulging. Facet joint and ligamentum flavum hypertrophy. Central spinal canal and bilateral neuroforamina stenosis encroaching posterior compressing the neural elements. L5-S1: Sacralized vertebra. Broad-based disc bulging. Facet joint hypertrophy. Central spinal canal and bilateral neuroforamina stenosis encroaching the neural elements. No prevertebral compartment hematoma, mass or fluid collection. Multifocal different sizes cystic lesions in the kidneys, the largest in the lower pole right kidney. 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 Multilevel thoracolumbar spondylosis resulting in grade 1 anterolisthesis L4-5 and grade 1 retrolisthesis L1-2 and L3-4 resulting in multilevel central spinal canal and bilateral neuroforamina stenosis encroaching the neural elements pronounced at L4-5, L3-4 and to a lesser extent L2-3, L1-2 and L5-S1 levels. Electronically signed by: Noah Whitt MD 01/18/2025 01:11 PM BRIANNA
--- NOTE | ~2025-01-18 | MR_ITS ---
EXAMINATION: MR CERVICAL SPINE WITHOUT CONTRAST TECHNIQUE: Multiplanar multisequence imaging through the cervical spine was performed from the base of the skull through at least T1. INDICATION: M54.2 - Cervicalgia PRIOR: None FINDINGS: Skull Base: There is no tonsillar ectopia. Cranialcervical junction is intact. Cord: There is no abnormal cord signal or hydrosyringomyelia. Marrow and end-plates: Modic 1 signal is present at C3-4. Alignment: Reversal cervical lordosis. There is grade 1 anterolisthesis at C3-4 and minimal retrolisthesis at C5-6 and C6-7. There is minimal anterolisthesis at C7-T1. Soft tissues: Paraspinal soft tissues and major vascular structures are unremarkable. C2-3: Mild broad-based disc bulges indents thecal sac without causing spinal stenosis. Facet osteophytes moderately narrow the left neural foramen. There is no right foraminal narrowing. C3-4: Broad-based disc bulge and ligamentum flavum thickening flattened ventral cord and causes moderate spinal stenosis. Disc and osteophytes severely narrow both neural foramen. C4-5: There is severe loss of disc height. Disc and osteophytes result in moderate spinal stenosis with moderate right and severe left foraminal narrowing. C5-6: There is severe loss of disc height. Disc and osteophytes moderately narrow the spinal canal and result in moderate right and severe left foraminal narrowing. C6-7: There is severe loss of disc height. Retrolisthesis and osteophytes result in moderate spinal stenosis. Disc and osteophytes also contribute to severe bilateral foraminal narrowing, greater on the right. C7-T1: There is moderate loss of disc height and mild spinal stenosis with mild to moderate bilateral foraminal narrowing. MR/MR cervical spine wo con IMPRESSION: Multilevel degenerative disc disease and facet osteoarthritis with reversal cervical lordosis. C2-3: There is moderate left neural foraminal narrowing. C3-4: There is moderate spinal stenosis with severe bilateral foraminal narrowing. C4-5: There is moderate spinal stenosis with moderate right and severe left foraminal narrowing. C5-6: There is moderate narrowing of the spinal canal with moderate right and severe left foraminal narrowing. C6-7: There is moderate spinal stenosis with severe bilateral foraminal narrowing, greater on the right. C7-T1: There is mild spinal stenosis with mild to moderate bilateral foraminal narrowing. Electronically signed by: Byron Knox MD 01/18/2025 01:02 PM B[facility]ANNA
--- OUTSIDE RECORDS SUMMARY | 2025-01-18 13:48 | XMS_ITS | Encounter Summary ---
Author Organization [facility] Address [address] [facility] [address] [place] [address] Phone Care Team Providers Care Architectural Intern Name Role Phone Sivan Otoole NP Primary Care Provider Chandra Chaney DO Unavailable Sunday Franklin MD Unavailable [phone] Silvino Umaña DREDGING INSPECTOR Primary Care Provider Pcp, Unknown Primary Care Provider Unavailabl e Encounter Details Date Type Department Care Team (Late st Contact Info) Description 06/13/2021 Procedure Pass [facility], [facility] [address] [place] [address] Social History Tobacco Use Types Packs/Day Years [...] AM EDT Office Visit [facility] [address] [place] [address] [place] [address] [email or web address] documented as of this encounter Visit Diagnoses Not on filedocumented in this encounter Additional Health Concerns Assessment Noted Time PHQ-2 Depression Total Score: 0 07/12/19 22 11:22 AM EDT documented as of this encounter Care Teams Architectural Intern Relationship Specialty Start Date End Date Sivan Otoole, GLASS GLAZIER PCP - General 02/13/17 05/19/23 Silvino Umaña, CANDIDO 22 [facility] [place] [address] [email or web address] PCP - General Family Medicine 05/20/23 12/06/24 Pcp, Unknown PCP - General 12/07/24 Chandra Chaney DO [address] [place] [address] [email or web address] Endocrinology 11/07/22 Franklin MD 100 [facility] 200 [place] [address] [email or web address] 11/07/22 documented as of this encounter Additional Source Comments The information contained in this document represents components of the legal health record. It is not the complete legal health record.[facility]
--- OUTSIDE RECORDS SUMMARY | 2025-01-18 13:48 | XMS_ITS | Clinical Summary ---
Author Organization [facility] Address [address] [facility] [address] [place] [address] Phone Care Team Providers Care Fuel Yard Operator Name Role Phone Chandra Chaney DO Unavailable Sunday Franklin MD Unavailable [phone] Pcp, Unknown Primary Care Provider Unavailabl [...] 1 Application by Miscellaneous route daily. Elizalde [employer] protective wipes Daily use 100 each 3 [...] nodular goiter since 07/16/2017. Ultrasound done at [facility] on 01/09/2021. Showed that she has a large right mid lower pole nodule measuring 4.4 x 2.7 x 4.4 cm. It was biopsied on 07/17/2021 and was found to be benign. Did ultrasound at [facility] on 07/17/2022, see the report below. 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 (Primary Dx); Nontoxic uninodular goiter from Last 3 Months Immunizations Immunization Administration [...] 11:10 AM EDT Office Visit [facility] [address] [place] [address] Chandra Chaney DO [address] [place] [address] [email or web address] Health Maintenance Due Date Last Done Comments [...] Procedure Name Priority Date/Time Associated Diagnosis Comments THYROID STIMULATING HORMONE (TSH) Routine 10/11/2024 10:33 AM EDT 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 from Last 3 Months or Most Recently Relevant to Health Maintenance Results * TSH (10/11/2024 10:33 AM EDT) Blood Chandra Chaney DO LAB BLOOD BKR ORDERABLES Final R esult [address] [phone] from Last 3 Months or Most Recently Relevant to Health Maintenance Insurance [facility] [place] MEDICARE REPLACEMENT [place] [id number] [facility] MEDICARE REPLACEMENT MEDICARE REPLACEMENT [facility] MEDICARE REPLACEMENT [facility] MEDICARE [facility]PLACEMENT [facility] MEDICARE REPLACEMENT [facility] MEDICARE REPLACEMENT MEDICARE REPLACEMENT [facility] MEDICARE REPLACEMENT Care Teams Fuel Yard Operator Relationship Specialty Start Date End Date Pcp, Unknown PCP - General 12/07/24 Chandra Chaney DO [address] [place] [address] [email or web address] Endocrinology 11/07/22 Franklin MD 100 [facility] 200 [place] [address] [email or web address] 11/07/22 Additional Source Comments The information contained in this document represents components of the legal health record. It is not the complete legal health record.[facility]
--- OUTSIDE RECORDS SUMMARY | 2025-01-18 13:49 | XMS_ITS | Encounter Summary ---
Author Organization [facility] Address [address] [facility] [address] [place] [address] Phone Care Team Providers Care Wallpaperer Helper Name Role Phone Chandra Chaney DO Unavailable Sunday Franklin MD Unavailable [phone] Silvino Umaña CNP Primary Care Provider Pcp, Unknown Primary Care Provider Unavailabl e Encounter Details Date Type Department Care Team (Late st Contact Info) Description 07/24/2023 Procedure Pass [facility], Ct Scan - [address] [address] Social History Tobacco Use Types Packs/Day Years [...] AM EDT Office Visit [facility] [address] [place] [address] Chandra Chaney DO [address] [place] [address] [email or web address] documented as of this encounter Visit Diagnoses Not on filedocumented in this encounter Additional Health Concerns Assessment Noted Time PHQ-2 Depression Total Score: 0 07/12/19 22 11:22 AM EDT documented as of this encounter Care Teams Wallpaperer Helper Relationship Specialty Start Date End Date Silvino Umaña CNP [address] [facility] [place] [address] [email or web address] PCP - General Family Medicine 05/20/23 12/06/24 Pcp, Unknown PCP - General 12/07/24 Chandra Chaney DO [address] [place] [address] [email or web address] Endocrinology 11/07/22 Franklin MD [address] [facility] [address] [facility] [address] [place] [address] [email or web address] Nephrology 11/07/22 documented as of this encounter Additional Source Comments The information contained in this document represents components of the legal health record. It is not the complete legal health record.[facility]
--- OUTSIDE RECORDS SUMMARY | 2025-01-18 13:49 | XMS_ITS | Clinical Summary ---
Author Organization [facility] ity Address [address] [place] [address] Care Team Providers Care Heavy Duty Truck Mechanic Name Role Phone Unavailable Primary Care Provider [...] - 1-dose 75+ series) 2016 Depression Screening 03/16/2024 COVID-19 Vaccine (1 - 2023-2 5 season) 2024 Influenza Vaccine [...] Documents on File Type Date Recorded Patient Hat Forming Machine Operator Expl anation Health Care Decision (hx) [...]
--- OUTSIDE RECORDS SUMMARY | 2025-01-18 13:49 | XMS_ITS | Clinical Summary ---
Author Organization [facility] Address [address] [facility] [address] [place] [address] Phone Care Team Providers Care Ice Scraper Name Role Phone Sivan Otoole NP Primary Care Provider [phone] Allergies No known active allergies Medications levothyroxine [...] Office Visit [facility] [address] [place] [phone] Sunday Franklin MD [address] [facility] [address] [place] [address] Health Maintenance Due Date Last Done Comments Influenza Vaccine (#1) 2024 3, 12/11/2021, 12/11/2020, Additional history exists Pneumococcal Vaccine: 50+ Years Completed 02/08/2019, 01/23/2015 Hepatitis B Vaccine Aged Out No longe r eligible based on patient's age to complete this topic Insurance [facility] ([id number]) [facility] ([id number]) [place] [address] Care Teams Ice Scraper Relationship Specialty Start Date End Date Sivan Otoole NP [address] [place] [phone] PCP - General Nurse Practitioner 09/11/21
== END 2025-01-18 11:20 | disposition home or self-care (01) ==
LOC: HO.MRI 11:19
PROVIDERS: Visit Provider Internal Medicine
DX: M54.16 Radiculopathy, lumbar region (principal); M54.2 Cervicalgia
CPT/HCPCS: 72141; 72148

== ENCOUNTER 2025-02-28 09:25 | Outpatient (AMB) | payer OTHER, SELFPAY ==
[2025-02-28 09:31] VITALS: BP 152/88; PULSE 85; RESP 14; O2SAT 97; BMI 34.3
--- NOTE | 2025-02-28 09:31 | MHC.PC.OV ---
Vital Signs 02/28/25 09:31 02/28/25 09:59 Height 5 ft 1.61 in Weight 185 lb 6 oz BMI 34.3 BP 152/88 H 136/74 Blood Pressure Location Lt brachial Lt brachial Position Sitting Sitting Respiration 14 Pulse 85 Pulse Source Pulse Oximeter Temp Source Temporal Artery Scan Pulse Oximetry (%) 97 Oxygen Delivery Method Room Air Intake Visit Reasons: Annual Exam Grain Processor Required: No Accompanied by: Self / Same As Patient Allergies No Known Allergies (No Known Allergies*) Allergy (Verified 02/28/25 09:43) Medication List - Last Reconciled 02/28/25 by Piper Kee PA-C amlodipine 2.5 mg (1/2 x 5 mg) PO DAILY 90 days aspirin 81 mg PO DAILY atorvastatin 80 mg PO DAILY calcium carbonate (Calcium Antacid) 200 mg PO DAILY cholecalciferol (vitamin D3) 25 mcg PO DAILY cyclobenzaprine 5 mg PO Q8H PRN diclofenac sodium 1% (Voltaren Arthritis Pain) 2 grams topical QID fluticasone propionate 50 mcg/actuation (Flonase Allergy Relief) 1 spray intranasal DAILY ketotifen fumarate 0.025%(0.035%) 1 drp ophthalmic (eye) BID PRN levothyroxine 50 mcg PO DAILY metoprolol succinate ER 25 mg PO DAILY Tobacco use date assessed: 02/28/25 Fall risk assessment: No Falls in past year Last assessed Fall Risk: 02/28/25 Dental Screening Dental Screen Date: 02/28/25 Did you have a dental visit in the last 12 months?: Yes Did you have a dental problem in the last 6 months where you did not have access to dental care?: No Was dental information given to patient?: Patient has dentist HPI Annual Exam HPI Details 84 year old female with past medical history of hypertension, hypothyroid, hypercholesterolemia and previous [place] last seen 12/2024 coming in for annual exam. Presenting for her annual wellness visit with a chief complaint of chronic pain. She reports generalized pain from arthritis. An MRI of her lumbar spine showed fusion of the last vertebra with the sacrum, multilevel arthritis causing anterolisthesis at L4-L5, retrolisthesis in the rest of the spine, spinal canal stenosis, and narrowing of the neural foramina at most levels. An MRI of her cervical spine showed multilevel arthritis with mild spinal canal narrowing and some narrowing of the nerve root exits. The patient finds relief with muscle relaxers and topical rubs; she also takes an [id number] supplement containing magnesium for muscle cramps at night that affects her toes, hands, and legs. She follows with Dr. Chaney for her thyroid and is scheduled to see him in October. She sees [facility] for her heart and has an upcoming appointment in April. mammo: 02/2025 DEXA: declined colonoscopy: s/p ileostomy vaccines: AZD [facility] Surgical History History of bilateral breast reduction surgery History of total left knee replacement History of heart artery stent History of ileostomy Family History Father Prostate cancer Brother Prostate cancer Other Substance use disorder Social History Housing: Assisted Living Facility Alcohol intake: never Patient Tobacco Use Status: Never used Tobacco Tobacco use type: Cigarette e-Cigarette/Vaping Use: Never Used Second Hand Smoke Exposure: No service: No Current occupational status: retired Cognitive needs: No Hearing needs: No Vision needs: Yes (Reading glasses) Questionnaire Thrive Questionnaire Date Thrive assessed: 02/28/25 I am a: Patient What is your living situation today?: I have a steady place to live Within the past 12 months, did the food you bought not last and you didn't have the money to get more?: Never true Within the past 12 months, did you worry whether your food would run out before you got money to buy more?: Never true Do you have trouble paying for medicines?: No Do you have trouble getting transportation to medical appointments?: No Do you have trouble paying your heating and electricity bill?: No Do you have trouble taking care of your child, family member or friend?: Yes Do you have trouble with day-to-day activities such as bathing, preparing meals, shopping, managing finances, etc.?: No Are you currently unemployed and looking for a job?: No Are you interested in more education?: No Please select the resources that you would like help with: None Currently or been in a relationship where the following occur: No concerns reported THRIVE Score: 0 LINDA-7 AMB Questionnaire LINDA-7 Date LINDA - 7 assessed: 11/29/24 Source: Developed by Drs. Adi Rosa, Jannette Raman, Melchor Da Silva and colleagues, with an educational pablito from [employer]. Review of Systems Const Denies body aches, Denies chills, Denies fever(s), Denies headache(s) and Denies poor appetite Eyes Reports no additional complaints ENT Denies dysphagia, Denies dizziness, Denies headache(s) and Denies odynophagia Card Denies chest pain, Denies syncope, Denies edema, Denies irregular heart rhythm, Denies lightheadedness and Denies dyspnea Resp Denies cough and Denies dyspnea GI Denies abdominal pain, Denies constipation, Denies dysphagia, Denies diarrhea, Denies nausea, Denies odynophagia and Denies vomiting Reports no additional complaints Musc Denies abnormal gait and Reports back pain Skin/Breast Reports system reviewed and no additional complaints, except as documented Neuro Denies abnormal gait, Denies dizziness, Denies syncope and Denies headache(s) Psych Reports no additional complaints Physical exam (Primary Care) Vital Signs: Last Vital Signs Pulse 85 02/28/25 09:31 Resp 14 02/28/25 09:31 BP 136/74 02/28/25 09:59 Pulse Ox 97 02/28/25 09:31 Oxygen Delivery Method Room Air 02/28/25 09:31 BMI result Body Mass Index 34.3 Tobacco/Smoking Status: Tobacco use Status Tobacco use date assessed 02/28/25 02/28/25 09:37 Patient Tobacco Use Status Never used Tobacco 02/28/25 09:37 Tobacco use type Cigarette 02/28/25 09:37 e-Cigarette/Vaping Use Never Used 02/28/25 09:37 Thrive Assessment: Date of Thrive Assessment Date Thrive assessed 02/28/25 02/28/25 09:37 Currently or been in a relationship where the following occur: No concerns reported Const General: cooperative, healthy appearing, comfortable and no acute distress Orientation/consciousness: patient oriented x3 HENMT Head: Yes normocephalic Ears: hearing grossly normal bilaterally, external ears normal, TM's normal bilaterally and EAC's normal General nose exam: Normal external nose present Face and sinus: Yes normal facial exam and Yes sinuses nontender Mouth: Normal oral and palatal mucosa present and tongue normal Throat: Yes posterior oropharynx normal Eyes General: appearance normal, both eyes and all related structures Conjunctivae: conjunctivae normal Pupils: Equal, round and reactive pupils present EOM: EOMs intact bilaterally and No Nystagmus present Neck Neck: Yes normal visual inspection, Yes full ROM and Yes no lymphadenopathy Chest Chest palpation & inspection: normal inspection of the chest Resp Effort & Inspection: normal respiratory effort Auscultation: clear to auscultation bilaterally, no crackles, no rales, no rhonchi, no wheezes and breath sounds present Cardio Rate: regular rate Rhythm: regular rhythm Peripheral pulses: radial pulses present and dorsalis pedis present GI Inspection: Yes normal to inspection and No Abdominal wall edema Palpation (GI): Soft to palpation, not firm and nontender Auscultation: normal bowel sounds Rectal Exam - Female: deferred General: Yes no CVA tenderness Back/Spine/Pelvis Back: no CVA tenderness Skin General skin exam: no rashes or lesions noted Neuro General: patient oriented x3 Cranial nerves: Yes Equal, round and reactive pupils present, Yes Midline tongue present, Yes Ability to bilaterally elevate shoulders present and No Nystagmus present Gait exam (Neuro): Normal gait present Extrem General: Yes normal to inspection, Yes full ROM, No no pedal edema and No edema Psych Speech and movement: Normal speech and movement present Affect: normal affect Insight: Good insight present (Psych) Judgement: Good judgement present (Psych) Results AMB Hemoglobin A1c AMB Hemoglobin A1c 5.7 % Last Edit by Paulina Fuller MA on 02/28/25 10:35 Results Reviewed Results Reviewed: Laboratory Last Values Hgb A1c (Clinic) 5.7 % (4.0-6.0) 02/28/25 10:01 Coding Level of Care Code Est Pt Prev Care >65y(62987) Diagnoses Annual physical exam Z00.00 Hypertension I10 Myocardial infarction I21.9 Hypercholesterolemia E78.00 Hypothyroidism E03.9 Lumbar radiculopathy M54.16 Prediabetes R73.03 Assessment & Plan Assessment & Plan (1) Annual physical exam: Code(s): Z00.00 - Encounter for general adult medical examination without abnormal findings Category: Medical (2) Hypertension: Code(s): I10 - Essential (primary) hypertension Category: Medical Plan: Continue on current blood pressure medication. Avoid salt intake and encourage healthy diet and regular exercise. (3) Myocardial infarction: Comment: 2021 w/ stent placed [facility] yearly Code(s): I21.9 - Acute myocardial infarction, unspecified Category: Medical Plan: LDL goal less than 70, blood pressure goal less than 130/80, A1c goal less than 7%. Her blood pressure is mildly elevated in the office today however she reports being in pain and sleeping poorly. She will continue to monitor the blood pressure at home and reach out to the office if it exceeds 130 over 80 (4) Hypercholesterolemia: Code(s): E78.00 - Pure hypercholesterolemia, unspecified Category: Medical Plan: Avoid foods that are high in cholesterol such as red meat, fried foods, eggs and baked goods. Triglyceride goal of less than 150 and LDL goal of less than 70. Continue on Atorvastatin 80mg. Reminded about blood work (5) Hypothyroidism: Comment: Dr. Chaney [facility] Code(s): E03.9 - Hypothyroidism, unspecified Category: Medical Plan: Continue to follow with Dr. Chaney through [facility]. (6) Lumbar radiculopathy: Code(s): M54.16 - Radiculopathy, lumbar region Category: Medical Plan: The patient's chronic pain is attributed to multilevel arthritis in her lumbar and cervical spine, as detailed by her recent MRI results. She finds relief with muscle relaxers and topical analgesics. She declined referrals to a spine clinic for surgical evaluation, pain management for possible injections, and physical therapy, opting to manage her symptoms with medication and home exercises. A prescription for muscle relaxers will be continued, and if there are issues with insurance coverage, an alternative will be provided. A topical cream will also be prescribed. (7) Prediabetes: Code(s): R73.03 - Prediabetes Category: Medical Plan: Decrease the amount of carbohydrates such as pasta, bread, rice, and potatoes and limit the amount of sweets. Although fruits are generally healthy they should be eaten in moderation as they are still high in sugar. A1c in the clinic today 5.8%. Plan This note was constructed using voice recognition software. While every effort has been made to ensure accuracy and security inspector, still areas may have been included sometimes these areas may affect the content or meeting of the given symptoms. Total time spent caring for the patient today was 30 minutes. This includes time spent before the visit reviewing the chart, time spent during the visit, and time spent after the visit and documentation. Patient was informed and verbally consented to the use of an ambient scribe for clinic note documentation during this visit. Orders: Orders UA CC w/rflx Micro + Cult Today R35.89 - Other polyuria AMB Hemoglobin A1c Today Z13.1 - Encounter for screening for diabetes mellitus, Z13.9 - Encounter for screening, unspecified Medications: Refilled cyclobenzaprine 5 mg PO Q8H PRN 30 tabs 1RF Muscle Spasm diclofenac sodium 1% (Voltaren Arthritis Pain) apply to single elbow, wrist or hand; for hand includes palm/fingers/back of hand 2 grams topical QID 50 grams 0RF
[2025-02-28 09:59] VITALS: BP 136/74
--- OUTSIDE RECORDS SUMMARY | 2025-02-28 10:54 | XMS_ITS | Encounter Summary ---
Author Organization [facility] Address [address] [facility] [address] [place] [phone] Phone Care Team Providers Care Embossing Calender Operator Name Role Phone Sivan Otoole NP Primary Care Provider [phone] Chandra Chaney DO Unavailable Sunday Franklin MD Unavailable [phone] Silvino Umaña CLINICAL TECHNOLOGIST Primary Care Provider Pcp, Unknown Primary Care Provider Unavailabl e Encounter Details Date Type Department Care Team (Late st Contact Info) Description 06/13/2021 Procedure Pass [facility] [address] [place] [address] Social History Tobacco Use Types Packs/Day Years [...] AM EDT Office Visit [facility] [address] [place] [address] [place] [address] [email or web address] documented as of this encounter Visit Diagnoses Not on filedocumented in this encounter Additional Health Concerns Assessment Noted Time PHQ-2 Depression Total Score: 0 07/12/19 22 11:22 AM EDT documented as of this encounter Care Teams Embossing Calender Operator Relationship Specialty Start Date End Date Sivan Otoole, MEAT HANGER PCP - General 02/13/17 05/19/23 Silvino Umaña, CANDIDO [address] [facility] [place] [address] [email or web address] PCP - General Family Medicine 05/20/23 12/06/24 Pcp, Unknown PCP - General 12/07/24 Chandra Chaney DO [address] [place] [address] [email or web address] Endocrinology 11/07/22 Franklin MD [address] [facility] [address] [place] [address] [email or web address] Nephrology 11/07/22 documented as of this encounter Additional Source Comments The information contained in this document represents components of the legal health record. It is not the complete legal health record.[facility]
--- OUTSIDE RECORDS SUMMARY | 2025-02-28 10:54 | XMS_ITS | Clinical Summary ---
Author Organization [facility] Address [address] [facility] [address] [place] [id number] Phone Care Team Providers Care Warehouse Order Picker Name Role Phone Chandra Chaney DO Unavailable Sunday Franklin MD Unavailable [phone] Pcp, Unknown Primary Care Provider Unavailabl [...] 1 Application by Miscellaneous route daily. Elizalde [employer] protective wipes Daily use 100 each 3 [...] nodular goiter since 07/16/2017. Ultrasound done at [facility] on 01/09/2021. Showed that she has a large right mid lower pole nodule measuring 4.4 x 2.7 x 4.4 cm. It was biopsied on 07/17/2021 and was found to be benign. Did ultrasound at [facility] on 07/17/2022, see the report below. Final [...] 018 Ulcerative colitis 05/04/2017 Nocturnal hypoxemia 05/04/2017 Immunizations Immunization Administration Dates Next Due COVID-19 (Pre) Moderna Vaccine, mRNA, PF 05/30/2020,05/02/2020 COVID-19 Pfizer [...] Used Date Smoking Tobacco: Former Cigarettes 1 1993 Smokeless Tobacco: Never Comments:socially Alcohol Use [...] 11:10 AM EDT Office Visit [facility] [address] [place] [id number] Chandra Chaney DO [address] [place] [address] Health Maintenance Due Date Last Done Comments [...] LAB BLOOD BKR ORDERABLES Final R esult [facility] [address] [place] [address] from Last 3 Months or Most Recently Relevant to Health Maintenance Insurance [employer] [id number] MEDICARE REPLACEMENT MEDICARE REPLACEMENT MEDICARE REPLACEMENT MEDICARE REPLACEMENT MEDICARE REPLACEMENT [employer] [id number] [employer] [place] [id number] Care Teams Warehouse Order Picker Relationship Specialty Start Date End Date Pcp, Unknown PCP - General 12/07/24 Chandra Chaney DO [address] [place] [address] [email or web address] Endocrinology 11/07/22 Franklin MD [address] [facility] [address] [place] [address] [email or web address] 11/07/22 Additional Source Comments The information contained in this document represents components of the legal health record. It is not the complete legal health record.[facility]
--- OUTSIDE RECORDS SUMMARY | 2025-02-28 10:54 | XMS_ITS | Encounter Summary ---
Author Organization [facility] Address [address] [facility] [address] [place] [phone] Phone Care Team Providers Care Information Security Specialist Name Role Phone Chandra Chaney DO Unavailable Sunday Franklin MD Unavailable Silvino Umaña CNP Primary Care Provider Pcp, Unknown Primary Care Provider Unavailabl e Encounter Details Date Type Department Care Team (Late st Contact Info) Description 07/24/2023 Procedure Pass [facility], Ct Scan - [address] [address] Social History Tobacco Use Types Packs/Day Years [...] AM EDT Office Visit [facility] [address] [place] [address] Chandra Chaney DO [address] [place] [address] [email or web address] documented as of this encounter Visit Diagnoses Not on filedocumented in this encounter Additional Health Concerns Assessment Noted Time PHQ-2 Depression Total Score: 0 07/12/19 22 11:22 AM EDT documented as of this encounter Care Teams Information Security Specialist Relationship Specialty Start Date End Date Silvino Umaña CNP [address] [facility] [place] [address] [email or web address] PCP - General Family Medicine 05/20/23 12/06/24 Pcp, Unknown PCP - General 12/07/24 Chandra Chaney DO [address] [place] [address] [email or web address] Endocrinology 11/07/22 Franklin MD [address] [facility] [address] [facility] [address] [place] [address] [email or web address] 11/07/22 documented as of this encounter Additional Source Comments The information contained in this document represents components of the legal health record. It is not the complete legal health record.[facility]
--- OUTSIDE RECORDS SUMMARY | 2025-02-28 10:54 | XMS_ITS | Clinical Summary ---
Author Organization [facility] ity Address [address] [place] [address] Care Team Providers Care Herpetologist Name Role Phone Unavailable Primary Care Provider [...] Depression Screening 03/16/2024 COVID-19 Vaccine (1 - 2024-2 6 season) 2024 Influenza Vaccine (#1) 2024 HIB [...] Documents on File Type Date Recorded Patient Shellfish Manager Expl anation Health Care Decision (hx) 02/07/2014 [...]
== END 2025-02-28 10:16 | disposition home or self-care (01) ==
LOC: HO.HMCH 09:26
DX: Z00.00 Encounter for general adult medical examination without abnormal findings (principal); I10 Essential (primary) hypertension; I25.2 Old myocardial infarction; E78.00 Pure hypercholesterolemia, unspecified; E03.9 Hypothyroidism, unspecified; M54.16 Radiculopathy, lumbar region; R73.03 Prediabetes; Z13.9 Encounter for screening, unspecified; Z13.1 Encounter for screening for diabetes mellitus

== ENCOUNTER → 2025-02-28 09:25 | Outpatient (BNVA) | payer OTHER, SELFPAY | DX: Z00.00 Encounter for general adult medical examination without abnormal findings (principal); I10 Essential (primary) hypertension; I21.9 Acute myocardial infarction, unspecified; E78.00 Pure hypercholesterolemia, unspecified; E03.9 Hypothyroidism, unspecified; M54.16 Radiculopathy, lumbar region; R73.03 Prediabetes | CPT/HCPCS: 83036; 99397 ==